=== PATIENT | female | born 1970 | race Caucasian/White ===

== ENCOUNTER 2017-09-04 08:39 | Day surgery (SDC) | payer OTHER, SELFPAY ==
[2017-09-04] VITALS (10 sets, daily range): BP systolic 108–148; BP diastolic 60–83; PULSE 53–82; RESP 16–18; TEMP 36.7–37.1; O2SAT 93–99; BMI 39.2
--- NOTE | 2017-09-04 08:46 | EKG12_ITS ---
Test Reason : PRE OP Blood Pressure : / mmHG Vent. Rate : 057 BPM Atrial Rate : 057 BPM P-R Int : 128 ms QRS Dur : 086 ms QT Int : 414 ms P-R-T Axes : 013 026 031 degrees QTc Int : 402 ms Sinus bradycardia Low voltage QRS (limb leads) Confirmed by PJ MONTOYA, JOSE C ([id number]), movie editor ALO RIOJAS ([id number]) on 09/09/2017 2:53:09 PM Referred By: Derek Molina Confirmed By:JOSE C OLIVA MD
[2017-09-04 09:20] LABS: Hematocrit 41.5 % (37-47); Hemoglobin 13.8 g/dl (12.0-15.0); Mean Corp Hgb Conc 33.3 g/gl (32-36); Mean Corpuscular Hgb 31.3 pg (27.0-32.0); Mean Corpuscular Volume 94.1 fL (81-99); Mean Platelet Vol. 10.1 fl (6.2-12.0); Platelet Count 374 K/mm3 (150-450); RBC Distribution Width CV 12.6 % (11.6-14.6); RBC Distribution Width SD 43.3 fl (35.1-43.9); Red Blood Count 4.41 M/mm3 (4.2-5.4); White Blood Count 10.1 K/mm3 (4.4-11.0)
[2017-09-04 09:22] LABS: Scan Indicated on CBC? Y/N NO
[2017-09-04 09:38] LABS: Anion Gap 7 (5-15); BUN 14 mg/dL (7-18); BUN/Creat Ratio 18.1 RATIO (10-20); Calcium,Total 8.8 mg/dL (8.5-10.1); Chloride 110 mmol/L (98-107); Creatinine, Serum 0.77 mg/dL (0.55-1.02); EST Glomerular Filtration Rate 86 mL/min (>60); Est Glom Filt Rate - Afr Amer 104 mL/min (>60); Estimated Creatinine Clearance 77.13 ml/min; Glucose 116 mg/dL (70-110); Potassium 4.1 mmol/L (3.5-5.1); Sodium Level 142 mmol/L (136-145)
[2017-09-04 09:48] LABS: Pregnancy, Serum, hCG Quali. NEGATIVE Negative (0-9 Nonpreg)
--- NOTE | 2017-09-04 10:15 | GALL_PTH ---
PATIENT: GOKUL SERRANO LOC: [facility] [place][id number] AGE/SX: 46/F ROOM: RE09/04/[address]: Dr. Derek Molina MD : 1970 BED: DIS: 09/04/2017 SPEC #: [id number] RECD: 09/04/17 13:09 STATUS: GAIL CJ #: [id number] CHRISS: 09/04/17 10:[address]: Derek Molina DEPT: SURGICAL PATHOLOGY RECD BY: Mikey Rodriguez ENTERED: 09/04/17 14:33 SP TYPE: NATALIE ENCARNACION DR: Dr. Hansa Lynch DO Tissues: Gallbladder, NOS Procedures: Surgery Specimen Level III HEADER OPERATION: Laparoscopic cholecystectomy with IOC PRE-OP DIAGNOSIS: Acute biliary pancreatitis, unspecified, complicated status; calculus of gallbladder without cholecystitis without obstruction TISSUE SUBMITTED: Gallbladder MICROSCOPIC DIAGNOSIS Gallbladder: Chronic cholecystitis. No stones are identified in the container or in the gallbladder. SJ:sarah 09/07/17 MICROSCOPIC DESCRIPTION Slides are reviewed. GROSS DESCRIPTION Received is one container labeled with the patient's name and designated gallbladder. The specimen consists of a gallbladder measuring 6.5 x 3 x 2.8 cm. The external surface is smooth and glistening. Focally, it is granular, hemorrhagic and contains cautery artifact. No stones are identified in the container or in the gallbladder. The mucosa is bile-stained and without any mass lesions. The gallbladder wall averages 0.2 cm in thickness and is free of mass lesions. Button Cutting Machine Operator sections of the gallbladder and the cystic duct are submitted in one cassette. / AM:sarah 09/04/17 TC: CPT: 50779
--- NOTE | 2017-09-04 10:47 | PCM.DC.GS ---
Discharge Diet: Light diet - advance as tolerated - if you have questions about your diet instructions, please talk to you doctor. Discharge Activity: May Not Drive - for 1 week or while taking narcotic pain medicine. May shower in (days): 1 Lifting Restrictions: 10 pounds Call your doctor if your incision/area has: Continuous Slow Oozing, Sudden Increased Bleeding, Increased Pain/ Swelling, Increased Redness, Foul Smelling Discharge Call your doctor if you observe: Fever of 101 or Higher Suture Line Care: Avoid Pulling/Pushing, Avoid Pinching/Bending Additional Dressing/Incision Instructions:: Change or remove dressing in 4 days. Leave steri-strips in place for 1 week. Allergies/Adverse Reactions: Allergies No Known Allergies Allergy (Verified 09/03/17 13:52) Medications to take at Discharge Hydrocodone Bitart/Apap 5-325 [Lyndora 5/325] 1 - 2 tab PO Q4H PRN PRN #20 tab 08/13/17 Hydrocodone Bitart/Apap 5-325 [Lyndora 5MG-325MG] 1 tablet PO Q6H PRN PRN 3 Days #6 tablet 09/04/17 The following prescriptions were given: Hydrocodone Bitart/Apap 5-325 [Lyndora 5MG-325MG] 1 tablet PO Q6H PRN PRN 3 Days #6 tablet PRN Reason: Pain Primary Care Physician: Hansa Lynch DO [Primary Care Provider] - Please Follow Up With: Derek Molina MD - [phone] When: Call to make an appointment to be seen in about 10 days.
[2017-09-04] MEDS: Cefazolin 2 GM in 0.9% Normal Saline 100 ML IV (10:56)
--- NOTE | 2017-09-04 11:15 | RAD_ITS ---
STUDY: INTRAOPERATIVE CHOLANGIOGRAM. REASON FOR EXAM: Female, 46 years old. Laparoscopic cholecystectomy. FLUOROSCOPY TIME (if supplied): (24.5 seconds) minutes/seconds TECHNIQUE: An intraoperative glandular was performed by the surgeon. Image was submitted. COMPARISON: None. FINDINGS: The visualized intrahepatic biliary ducts are unremarkable. The common bile duct is unremarkable. No intraluminal filling defects is seen. There is free flow of contrast into the duodenum. RAD/Cholangiogram/ O R,Initial IMPRESSION: Unremarkable intraoperative cholangiogram. Electronically Signed: Carlos A Yip MD at 14:02 EST Tel [phone], Service support ,
[2017-09-04] MEDS: Bupivacaine Mpf 0.5% 30 ML VIAL (11:20)
--- NOTE | 2017-09-04 12:28 | OP.PCM_ITS ---
Problem List (1) Chronic calculous cholecystitis Status: Acute Report of Operation Date of Procedure: 09/04/17 Pre-Operative Diagnosis: Chronic cholecystitis cholelithiasis, repetitive bouts of pancreatitis Post-Operative Diagnosis: Same Surgery/Procedure Performed:: Laparoscopic cholecystectomy with intraoperative cholangiography Description of Surgical Findings:: Timeout and informed consent was obtained. 46-year-old female was taken the operative placement table underwent general ventricular-based anesthesia. Ancef 2 g given intravenous relatively the abdomen was sterilely prepped draped 0.5% Marcaine was used as local anesthetic. Skin sites were pre-anesthetized. A total of 30 cc was used. A vertical infraumbilical incision was created. Holding sutures of 0 Vicryl placed. Varies needle inserted. Saline drop test performed. The abdomen was insufflated with CO2 to a pressure of 10 mmHg pressure. Yohana trocar inserted. 10 lap scope inserted. No evidence of any trocar injuries. The abdomen is rapidly inspected no evidence any superficial abnormalities. There were dense adhesions of omentum completely walling off the gallbladder. Five-minute trochars are placed in the epigastric mid abdomen and right upper quadrant. Tediously the omentum was bluntly sharply and electrocautery dissected free from the gallbladder. Then the infundibular area was tediously teased free. There was noted to be both an anterior to posterior cystic artery. The cystic duct was carefully completely dissected free. The hepatocystic angle was dissected free. 2 Hem-o-mingo clips were placed on the anterior cystic artery and one distally prior to transecting it. A Hem-o-mingo clip was placed on the cystic duct. Incision made into a 14-gauge Angiocath Greenlandic Berto catheter was inserted. Fluoroscopically controlled plantar grams were obtained demonstrating normal ductal anatomy and what appeared to be free flow into the small bowel. The cholangiogram catheter was removed and 2 Hem-o- mingo clips were placed on the cystic duct stump prior to transecting it. The posterior cystic artery was secured with 2 Hem-o-mingo clips. The gallbladder was then carefully and tediously dissected free from the liver bed. Significant amount of chronic inflammatory change was encountered and electrocautery was used to carefully dissect the gallbladder free. There was no bile or gallbladder stone spillage. The gallbladder was placed in retrieval bag. The right upper quadrant was irrigated and aspirated free of excess fluid. To further assure hemostasis fibular was placed in the liver bed. The gallbladder was exited the umbilicus. The remaining trochars were removed under visualization. The abdomen was allowed to deflate of CO2. The fascia at the umbilicus approximated interrupted 0 Vicryl figure 8 suture. Bandages were approximated up to 4 Monocryl subdermal stitches. Steri-Strips, Telfa, OpSite dressings applied. Sponge and instrument and needle counts were reported to the surgeon be correct. Blood loss was minimal. She tired procedure was taken to recovery or insect condition without apparent complication. Specimens gallbladder. Drains none. Blood loss minimal. Derek Molina M.D., F.A.C.S. Type of Anesthesia:: General Anesthesiologist: Amandeep Juarez
[2017-09-04] MEDS: HYDROcodone Bitartrate/Apap 5/325 Tablet PO (14:56)
== END 2017-09-04 15:57 | disposition home or self-care (01) ==
LOC: SDC 08:40 → AC 08:41
PROVIDERS: Family Provider Internal Medicine; PCP Internal Medicine; Visit Provider Surgery
PROC: (CPT 47610; principal; 2017-09-04 09:55)
DX: K81.1 Chronic cholecystitis (principal); K85.10 Biliary acute pancreatitis without necrosis or infection; F17.200 Nicotine dependence, unspecified, uncomplicated
CPT/HCPCS: 47563; 36415; 74300; 76000; 80048; 84703; 85027; 88304; 93005; J7120; J2405

== ENCOUNTER → 2018-02-17 15:49 | Outpatient (CLI) | payer BC, SELFPAY ==
[2018-02-17 17:18] LABS: Absolute Lymphocyte Count 2.94 X10^3/ul (0.83-4.51); Absolute Neutrophil Count 9.1 X10^3/uL (2.0-7.7); Basophil# 0.04 X10^3/uL; Basophil% 0.3 % (0-1); Eosinophil# 0.05 X10^3/uL; Eosinophils% 0.4 % (0-5); Hematocrit 40.5 % (37-47); Hemoglobin 13.8 g/dl (12.0-15.0); Lymphocyte # 2.94 X10^3/ul (4.0); Lymphocyte % 21.8 % (19-41); Mean Corp Hgb Conc 34.1 g/gl (32-36); Mean Corpuscular Hgb 32.2 pg (27.0-32.0); Mean Corpuscular Volume 94.4 fL (81-99); Mean Platelet Vol. 9.7 fl (6.2-12.0); Monocyte# 1.25 X10^3/uL; Monocyte% 9.3 % (0-10); Neutrophil # 9.14 X10^3/uL (2.7-7.7); Neutrophil % 67.8 % (47-70); Platelet Count 377 K/mm3 (150-450); RBC Distribution Width CV 12.9 % (11.6-14.6); RBC Distribution Width SD 43.5 fl (35.1-43.9); Red Blood Count 4.29 M/mm3 (4.2-5.4); White Blood Count 13.5 K/mm3 (4.4-11.0)
[2018-02-17 17:24] LABS: POSITIVE COUNT NO; POSITIVE DIFFERENTIAL NO; POSITIVE MORPHOLOGY NO
[2018-02-17 18:12] LABS: Erythrocyte Sedimentation Rate 24 mm/hr (0-20)
[2018-02-17 18:42] LABS: ALB/GLOB Ratio 0.8 RATIO (0.9-2.4); AST(SGOT) 21 U/L (15-37); Alanine Aminotransfer ALT/SGPT 40 U/L (13-56); Albumin, Serum 3.3 g/dL (3.2-5.0); Alkaline Phosphatase 79 U/L (45-117); Amylase 18 U/L (25-115); Anion Gap 9 (5-15); BUN 8 mg/dL (7-18); BUN/Creat Ratio 10.1 RATIO (10-20); Calcium,Total 8.6 mg/dL (8.5-10.1); Chloride 104 mmol/L (98-107); EST Glomerular Filtration Rate 83 mL/min (>60); Est Glom Filt Rate - Afr Amer 100 mL/min (>60); Globulin 4.4 g/dL (2.2-4.2); Glucose 114 mg/dL (74-106); Lipase 88 U/L (73-393); Potassium 3.3 mmol/L (3.5-5.1); Protein, Total 7.7 g/dL (6.4-8.2); Sodium Level 139 mmol/L (136-145)
== END ==
PROVIDERS: Family Provider Internal Medicine; PCP Internal Medicine; Visit Provider Internal Medicine
DX: R10.13 Epigastric pain (principal)
CPT/HCPCS: 80053; 82150; 83690; 85025; 85652

== ENCOUNTER → 2018-03-17 16:47 | Outpatient (CLI) | payer BC, SELFPAY | PROVIDERS: Family Provider Internal Medicine; PCP Internal Medicine; Visit Provider Internal Medicine | DX: R11.2 Nausea with vomiting, unspecified (principal) | CPT/HCPCS: 76705 ==

== ENCOUNTER → 2018-03-18 09:58 | Outpatient (CLI) | payer BC, SELFPAY | PROVIDERS: Family Provider Internal Medicine; PCP Internal Medicine; Visit Provider Internal Medicine | DX: R93.8 Abnormal findings on diagnostic imaging of other specified body structures (principal) | CPT/HCPCS: 74160; Q9967 ==

== ENCOUNTER → 2018-03-24 16:51 | Outpatient (CLI) | payer BC, SELFPAY ==
[2018-03-26 20:08] LABS: Endomysial Antibody IgA Negative (Negative)
[2018-03-27 08:55] LABS: Immunoglobulin A 298 mg/dL (87-352); t-Transglutaminase IgA <2 U/mL (0-3)
== END ==
PROVIDERS: Family Provider Internal Medicine; PCP Internal Medicine; Visit Provider Internal Medicine Gastroenterology
DX: R19.7 Diarrhea, unspecified (principal)
CPT/HCPCS: 36415; 82784; 83516; 86140; 86255

== ENCOUNTER → 2018-03-29 15:48 | Outpatient (CLI) | payer BC, SELFPAY ==
--- NOTE | 2018-03-29 12:52 | COLBX_PTH ---
PATIENT: GOKUL SERRANO LOC: [facility] U#:[id number] AGE/SX: 54/F ROOM: RE03/29/[address]: Dr. Zhou Carmona MD : 1970 BED: DIS: SPEC #: [id number] RECD: 03/29/18 15:20 STATUS: GAIL CJ #: [id number] CHRISS: 03/29/18 12:[address]: Zhou Carmona DEPT: SURGICAL PATHOLOGY RECD BY: Darin Gomes ENTERED: 03/30/18 12:09 SP TYPE: COLON BX OT DR: Dr. Hansa Lynch, [facility] Tissues: A - Ileum, NOS B - COLON BIOPSY Procedures: Surgery Specimen Level IV HEADER OPERATION: Colonoscopy with biopsies PRE-OP DIAGNOSIS: Abdomen pain, nausea, vomiting, weight loss TISSUE SUBMITTED: A ? Terminal ileum biopsies, rule out Crohn?s, B ? Right and left colon biopsies, rule out microscopic colitis MICROSCOPIC DIAGNOSIS A. Terminal ileum, biopsy: No pathologic diagnosis. B. Right and left colon, biopsy: No significant pathologic change. No evidence of colitis. AM:sarah 03/31/18 COMMENT A. There is no evidence of Crohn?s enteritis. MICROSCOPIC DESCRIPTION Slides are reviewed. GROSS DESCRIPTION A - Received in fixative is one container labeled with the patient's name and designated terminal ileum. The specimen consists of multiple irregular fragments of light yo soft tissue that in aggregate measure 0.5 x 0.3 x 0.1 cm. The specimen is totally submitted in one cassette. B - Received in fixative is one container labeled with the patient's name and designated right and left colon biopsy. The specimen consists of multiple irregular fragments of light yo soft tissue that in aggregate measure 1 x 0.5 x 0.1 cm. The specimen is totally submitted in one cassette. / AM:sarah 03/30/18 TC:5 CPT: 91902 x2
== END ==
PROVIDERS: Family Provider Internal Medicine; PCP Internal Medicine; Visit Provider Internal Medicine Gastroenterology
DX: R10.9 Unspecified abdominal pain (principal); R11.2 Nausea with vomiting, unspecified; R63.4 Abnormal weight loss
CPT/HCPCS: 88305

== ENCOUNTER → 2021-07-11 06:30 | Outpatient (CLI) | payer BC, SELFPAY ==
--- NOTE | 2021-07-11 06:42 | MRI_ITS ---
STUDY: MRI BRAIN WITHOUT CONTRAST REASON FOR EXAM: Female, 50 years old. ABNORMAL GAIT, episodes of headaches w/ nausea, vision change TECHNIQUE: Standardized multiplanar fat and water weighted pulse sequences were obtained. COMPARISON: None. FINDINGS: Normal size of the ventricles and extra-axial spaces for the patient''s age. Normal white matter tracts of the supratentorial brain. Normal bilateral basal ganglia. Normal thalami. There is no extra-axial fluid accumulation. Normal sella turcica, pituitary gland, infundibular stalk, optic chiasm and hypothalamus. Normal tectal plate and pineal gland. Normal midbrain, viki and medulla. Normal cerebellum. Normal basal cisterns. MRI/Brain without Contrast IMPRESSION: Unremarkable unenhanced MRI of the brain. Electronically Signed: Renay Castro MD at 13:32 EST Tel , Service support ,
== END ==
PROVIDERS: PCP Internal Medicine; Referring Provider Internal Medicine; Visit Provider Internal Medicine
DX: R26.9 Unspecified abnormalities of gait and mobility (principal)
CPT/HCPCS: 70551

== ENCOUNTER 2021-08-13 14:59 | Outpatient (CLI) | payer BC, SELFPAY ==
--- NOTE | 2021-08-13 15:01 | BI_ITS ---
MAMMOGRAPHY - BILATERAL SCREENING REASON FOR EXAM: Female, 50 years old. Routine annual screening examination. PERTINENT HISTORY: Sister with breast cancer. Mother with breast cancer. Aunt with breast cancer. Grandmother with breast cancer. Prior bilateral breast reduction surgery. TECHNIQUE: Digital bilateral breast taylor (3D mammographic acquisition) in the CC and MLO projections. 2-D mediolateral oblique (MLO) and craniocaudad (CC) views of both breasts were obtained. CAD: Full Field Digital Mammography with Computer Added Detection was performed. COMPARISON: Comparison is made with prior study dated 05/13/2017 and 04/23/2016. FINDINGS: Breast Composition: The breasts are heterogeneously dense, which may obscure small masses. There are no dominant masses or suspicious calcifications. No other significant abnormalities are identified. There has been no significant change since the prior study. BI/SCRN MAMM (CAD)W/TAYLOR BILAT IMPRESSION: Stable bilateral screening mammogram. Yearly follow-up mammogram recommended. (A) ASSESSMENT CATEGORY: BIRADS Category 1: Negative. A letter regarding these results will be sent to the patient by the facility within 30 days. Approximately 10% of breast cancers are not detected by mammography. A normal mammogram should not delay biopsy of a clinically suspicious abnormality. [id number] Electronically Signed: Carlos A Yip MD at 15:40 EST , Service support ,
== END 2021-08-13 23:59 | disposition short-term general hospital (02) ==
LOC: OPBI 14:59
PROVIDERS: PCP Internal Medicine; Referring Provider Internal Medicine; Visit Provider Internal Medicine
DX: Z12.31 Encounter for screening mammogram for malignant neoplasm of breast (principal); Z80.3 Family history of malignant neoplasm of breast
CPT/HCPCS: 77063; 77067

== ENCOUNTER → 2023-07-06 | Outpatient (CLI) | payer BC, SELFPAY ==
--- NOTE | 2023-07-06 08:25 | BI_ITS ---
MAMMOGRAPHY - BILATERAL SCREENING REASON FOR EXAM: Female, 52 years old. Routine annual screening examination. PERTINENT HISTORY: Sister with breast cancer. Mother with breast cancer. Grandmother with breast cancer. Aunt with breast cancer. History of prior bilateral breast reduction surgery. TECHNIQUE: Digital bilateral breast taylor (3D mammographic acquisition) in the CC and MLO projections. 2-D mediolateral oblique (MLO) and craniocaudad (CC) views of both breasts were obtained. CAD: Full Field Digital Mammography with Computer Added Detection was performed. COMPARISON: Comparison is made with prior study dated August 13, 2021 and May 13, 2017. FINDINGS: Breast Composition: The breasts are heterogeneously dense, which may obscure small masses. There are no dominant masses or suspicious calcifications. Stable small benign-appearing bilateral axillary lymph nodes. No other significant abnormalities are identified. There has been no significant change since the prior study. BI/SCRN MAMM (CAD)W/TAYLOR BILAT IMPRESSION: Stable bilateral screening mammogram. Yearly follow-up mammogram recommended. (A) ASSESSMENT CATEGORY: BIRADS Category 2: Benign. A letter regarding these results will be sent to the patient by the facility within 30 days. Approximately 10% of breast cancers are not detected by mammography. A normal mammogram should not delay biopsy of a clinically suspicious abnormality. [id number] Electronically Signed: Carlos A Yip MD at 9:31 EST ,
== END | disposition home or self-care (01) ==
LOC: OPBI 08:25
PROVIDERS: PCP Internal Medicine; Referring Provider Internal Medicine; Visit Provider Internal Medicine
DX: Z12.31 Encounter for screening mammogram for malignant neoplasm of breast (principal); Z80.3 Family history of malignant neoplasm of breast
CPT/HCPCS: 77063; 77067

== ENCOUNTER → 2024-09-14 | Outpatient (CLI) | payer BC, SELFPAY ==
[2024-09-14 11:00] LABS: Anion Gap 7 (5-15); BUN 12 mg/dL (7-18); BUN/Creat Ratio 14.3 RATIO (10-20); Calcium,Total 9.5 mg/dL (8.5-10.1); Chloride 108 mmol/L (98-107); Cholesterol 233 mg/dL (200); Creatinine, Serum 0.84 mg/dL (0.55-1.02); EST Glomerular Filtration Rate 76 mL/min (>60); Est Glom Filt Rate - Afr Amer 92 mL/min (>60); Glucose 112 mg/dL (74-106); High Density Lipoprotein 55 mg/dL; Potassium 4.1 mmol/L (3.5-5.1); Sodium Level 138 mmol/L (136-145); Triglycerides 152 mg/dL; Very Low Density Lipoprotein 30 mg/dL (5-40)
== END | disposition home or self-care (01) ==
LOC: MFPLAB 08:08
PROVIDERS: PCP Internal Medicine; Referring Provider Family Medicine; Visit Provider Family Medicine
DX: Z00.00 Encounter for general adult medical examination without abnormal findings (principal)
CPT/HCPCS: 36415; 80048; 80061; 84443

== ENCOUNTER → 2024-10-24 | Outpatient (CLI) | payer BC, SELFPAY ==
--- NOTE | 2024-10-24 15:17 | BI_ITS ---
EXAM: PROCEDURE: MA Mammogram Digital Screen CLINICAL HISTORY: Screening COMPARISON: Mammogram studies dated 07/06/2023 and 08/13/2021 TECHNIQUE: A bilateral screening mammogram was obtained with MLO and CC views of both breasts with digital breast tomosynthesis. BREAST CANCER RISK ASSESSMENT: Does not appear to have been calculated. FINDINGS: There are lobulated nodular masslike densities seen in the retroareolar region, lateral and medial aspect of the right breast. The largest measures approximately 19 mm. These are obscured by the heterogeneously dense breast tissue. Further workup is indicated. Benign-appearing round microcalcifications and macrocalcifications are seen in the right breast. Benign-appearing round microcalcifications and macrocalcifications are seen in the left breast. Stable lobulated nodular masslike densities are seen. No suspicious masses, suspicious calcifications or other suspicious mammogram findings are seen in the left breast. CONCLUSION: Right Breast: BI-RADS category 0, incomplete, additional imaging needed. Left Breast: BI-RADS category 2, benign findings Breast Composition: The breasts are heterogeneously dense, which may obscure small masses. Recommendation: Diagnostic mammogram and ultrasound The patient should return for an LM view of the right breast as well as spot compression CC and spot compression MLO view of the right breast lobulated nodular masslike densities. An ultrasound will also most likely be needed. Thank you for referring your patient to the [facility], if you have any questions, please call us at the performing site listed at the top of the report. [facility] , [facility] , [facility] and [facility] . Reading Location: [id number]
== END | disposition home or self-care (01) ==
LOC: OPBI 15:16
PROVIDERS: PCP Family Medicine; Referring Provider Family Medicine; Visit Provider Family Medicine
DX: Z12.31 Encounter for screening mammogram for malignant neoplasm of breast (principal)
CPT/HCPCS: 77063; 77067

== ENCOUNTER → 2024-10-31 | Outpatient (CLI) | payer BC, SELFPAY ==
--- NOTE | 2024-10-31 08:56 | US_ITS ---
PROCEDURE: BREAST LIMITED UNILATERAL 10/31/2024 REASON FOR EXAM: RIGHT BREAST DENSITIES Inconclusive mammogram. Evaluate masslike densities.. TECHNIQUE: Targeted left breast ultrasound. COMPARISON: Mammogram studies dated 10/31/2024, 10/24/2024, and 07/06/2023 FINDINGS: There is a hypoechoic, heterogeneous, irregularly marginated, masslike density seen in the lateral areolar region covering an area measuring approximate 4.1 x 3.7 x 1.3 cm. This appears to have some calcifications within it. Biopsy is warranted in order to completely exclude a malignancy. There is a benign-appearing cyst identified at the 5 o'clock, 2 cm from nipple position measuring 4 x 4 x 4 mm. US/Breast Limited Unilateral IMPRESSION: Impression: The mass in the lateral areolar region should be biopsied is noted completely exclude a malignancy. Birads: BI-RADS 4: SUSPICIOUS ABNORMALITY. Reading Location: [id number]
--- NOTE | 2024-10-31 08:56 | BI_ITS ---
EXAM: Digital unilateral mammogram left breast with ronn. CLINICAL HISTORY: Inconclusive screening mammogram study dated 10/24/2024 showed lobulated nodular masslike densities in the right breast. Evaluate. COMPARISON: Mammogram dated 10/24/2024 and 07/06/2023 TECHNIQUE: ML view of the right breast was performed as well as spot compression CC and spot compression MLO views of the right breast lobulated nodular masslike densities. FINDINGS: There is a 4 cm, ill-defined, masslike density in the lateral, far anterior aspect of the right breast and areolar region which does persist on the ML view and does not disperse on the spot compression views. Further workup with ultrasound will be performed for further evaluation. There is a 5 mm, partially obscured, isodense mass in the lower inner quadrant. This is best appreciated on the spot compression views. Further workup with ultrasound will be performed. Benign macrocalcifications and round microcalcifications are seen in the breasts. BI/DIAG MAMM W/CAD, UNILAT IMPRESSION: BI-RADS category A/0. Incomplete. The mass and masslike density in the right breast will be further worked up with ultrasound. Please see that report. Reading Location: [id number]
== END | disposition home or self-care (01) ==
PROVIDERS: PCP Family Medicine; Referring Provider Family Medicine; Visit Provider Family Medicine
DX: R92.30 Dense breasts, unspecified (principal)
CPT/HCPCS: 76642; 77065

== ENCOUNTER → 2024-11-28 | Outpatient (CLI) | payer BC, SELFPAY ==
--- NOTE | 2024-11-28 10:30 | BRBX_PTH ---
PATIENT: GOKUL SERRANO LOC: [facility] U#:[id number] AGE/SX: 53/F ROOM: RE11/28/[address]: Dr. Tracey Desai MD : 1970 BED: DIS: 11/28/2024 SPEC #: [id number] RECD: 11/28/24 13:37 STATUS: GAIL REQ #: [id number] CHRISS: 11/28/24 10:[address]: Tracey Desai DEPT: SURGICAL PATHOLOGY RECD BY: Jewel Webster ENTERED: 11/28/24 13:38 SP TYPE: BREAST BX OTHR DR: Dr. Ino Tobias MD Tissues: A - Right breast, NOS Procedures: Surgery Specimen Level IV HEADER OPERATION: Ultrasound guided needle core biopsy right breast PRE-OP DIAGNOSIS: Abnormal mammogram TISSUE SUBMITTED: A- Right breast mass tissue - lateral retroareolar Ischemic Time: 1 minute Fixation Time: 8.5 hours MICROSCOPIC DIAGNOSIS A. Right breast, lateral retroareolar, mass, biopsy: * Benign breast tissue with fibrosis and focal UDH (usual ductal hyperplasia). * Microcalcifications are not observed (deeper sections examined). MICROSCOPIC DESCRIPTION Slides are reviewed. GROSS DESCRIPTION A. Received in formalin in a container labeled with the patient's name, date of , and right breast tissue are multiple white-pink fragments of soft tissue measuring 1.2 x 0.8 x 0.2 cm in aggregate. Submitted in toto in A1. Total formalin fixation time: Between 6 and 72 hours. [facility] 11/29/2024 CPT:68068
== END | disposition home or self-care (01) ==
LOC: LABSPEC 11:43
PROVIDERS: PCP Family Medicine; Referring Provider Surgery; Visit Provider Surgery
DX: R92.8 Other abnormal and inconclusive findings on diagnostic imaging of breast (principal)
CPT/HCPCS: 88305

== ENCOUNTER → 2025-06-19 | Outpatient (CLI) | payer BC, SELFPAY ==
--- NOTE | 2025-06-19 13:26 | US_ITS ---
PROCEDURE: BREAST LIMITED UNILATERAL 06/19/2025 REASON FOR EXAM: F, Age 54 y/o , 6 MONTH F/U left breast mass. Short-term follow-up exam. Evaluate. Document stability. COMPARISON: Breast ultrasound dated 10/31/2024 and mammogram studies dated 10/31/2024, 10/24/2024, and 07/06/2023 TECHNIQUE: Procedure Code: USBRSTLIMIT Modality: US Procedure: BREAST LIMITED UNILATERAL FINDINGS: There is a stable, benign-appearing cyst in the right breast retroareolar region of the 5 o'clock, 2 cm from nipple position measuring 5 x 4 x 2 mm. There is a stable area of heterogeneous breast parenchymal tissue in the lateral areolar region of the breast. This area is ill-defined. It appears to represent residual fibroglandular tissue and/or fibrocystic tissue on today's ultrasound exam. US/Breast Limited Unilateral IMPRESSION: There is a stable, benign-appearing cyst in the right breast retroareolar regio n of the 5 o'clock, 2 cm from nipple position measuring 5 x 4 x 2 mm. There is a stable area of heterogeneous breast parenchymal tissue in the latera l areolar region of the breast. This area is ill-defined. It appears to represent residual fibroglandular tissue and/or fib rocystic tissue on today's ultrasound exam. The patient should return in October 2025 for routine yearly screening mammograph y. BI-RADS 2: BENIGN RECOMMENDATION: Routine annual follow-up in 1 Year Reading Location: [id number]
== END | disposition home or self-care (01) ==
LOC: OPUS 13:25
PROVIDERS: PCP Family Medicine; Referring Provider Surgery; Visit Provider Surgery
DX: N63.10 Unspecified lump in the right breast, unspecified quadrant (principal)
CPT/HCPCS: 76642

== ENCOUNTER → 2025-07-07 | Outpatient (CLI) | payer BC, SELFPAY ==
--- OUTSIDE RECORDS SUMMARY | 2025-07-07 11:54 | XMS RPT_ITS | CCD ---
Author Organization [facility] Care Team Providers Care Kitchen Assistant Name Role Phone Hansa Lynch DO Unavailable Jesse MONTOYA, Derek Montana Unavailable Dr. Zhou Carmona Unavailable Leia MATTA, Kaylee Unavailable Unavailable Tiffanie RN, Jessica Unavailable Unavailable Unavailable Unavailable Dr. Hansa Lynch DO Primary Care Provider 1( [phone] Jatinder MONTOYA, Dr. Mckinnon Attending Provider Dr. Ino Tobias MD Referring Provider Jatinder MONTOYA, Dr. Mckinnon Primary Care Provider Ino Tobias Attending Unavailable Tobias, Ino Referring Unavailable Tobias, Ino Primary Care Unavailable Ino Tobias Attending Unavailable Ino Tobias Referring Unavailable Ino Tobias Primary Care Unavailable Robotyaw, Tracey Attending Unavailable Robotyaw, Tracey Referring Unavailable Ino Tobias Primary Care Unavailable Robotyaw, Tracey Attending Unavailable Robotham, Tracey Referring Unavailable TobiasIno mcclure Primary Care Unavailable Robotham, Tracey Attending Unavailable TobiasIno mcclure Referring Unavailable Ino Tobias Primary Care Unavailable Robotham, Tracey Attending Unavailable Tobias, Ino Referring Unavailable Jatinder, Ino Primary Care Unavailable Ino Tobias Attending Unavailable Ino Tobias Referring Unavailable Hansa Lynch Primary Care Unavailable Medications Completed/Discontinued Medications Medication Drug Class(es) Dates Sig (Normalized) Sig (Original) acetaminophen 325 mg / HYDROcodone bitartrate 5 mg oral tablet (5 sources) Opioid Agonist Start: 08-21-2017 End: 05-15-2021 Hydrocodone-Acetami nophen 1 TABLET tablet Discontinued 1 {tbl} PO EVERY 6 HOURS NEEDED as needed for Pain 6 3 September 04, 2017 1:00am September 15, 2017 2:18pm Start: 08-13-2017 End: 09-15-2017 Hydrocodone-Acetaminophen 1 TABLET tablet Discontinued 1 - 2 {tbl} PO EVERY 4 HOURS NEEDED as needed for Pain August 13, 2017 1:00am September 15, 2017 2:18pm Comment on above: This order discontin ued per [facility]. amoxicillin 875 mg / clavulanate 125 mg oral tablet (1 source) Penicillin-class Antibacterial Start: 2016 End: 2017 take 1 tablet by mouth twice daily Augmentin 875-125 MG Oral Tablet 1 (one) Tablet bid for 0 days Quantity: 20 {Tablet} Refills: 0 Ordered: 21-Aug-2017 Jessica Moreno RN Start : 01-May-2017 End : 21-Aug-2017 Inactive cephalexin 500 mg oral capsule (1 source) Cephalosporin Antibacterial Start: 2015 End: 2015 take 1 capsule by mouth four times daily Keflex 500 MG Oral Capsule 1 (one) Capsule qid for 10 days Refills: 0 Ordered: 10-Apr-2016 Rodrigo Thompson Start : 17-Mar-2016 End : 10-Apr-2016 Inactive ciprofloxacin 500 mg oral tablet (1 source) Quinolone Antimicrobial Start: 2017 End: 2020 take 1 tablet by mouth twice daily Ciprofloxacin HCl 500 MG Oral Tablet 1 (one) Tablet bid for 0 days Quantity: 20 {Tablet} Refills: 0 Ordered: 15-May-2021 Aria Duque CMA Start : 17-Feb-2018 End : 15-May-2021 Inactive citalopram 20 mg oral tablet (1 source) Serotonin Reuptake Inhibitor Start: 2016 End: 2016 take 1 tablet by mouth once daily at bedtime CeleXA 20 MG Oral Tablet 1 (one) Tablet qhs for 0 days Quantity: 30 {Tablet} Refills: 5 Ordered: 01-May-2017 Hansa Lynch DO, DO, Kathleen Start : 01-May-2017 End : 01-May-2017 Discontinued metaxalone 800 mg oral tablet (1 source) Start: 2015 End: 2016 take 1 tablet by mouth three times daily as needed Skelaxin 800 MG Oral Tablet 1 (one) Tablet tid prn for 0 days Quantity: 20 {Tablet} Refills: 0 Ordered: 07-Aug-2016 Jessica Moreno RN Start : 05-Jun-2016 End : 07-Aug-2016 Inactive methylPREDNISolone 4 mg oral tablet (1 source) Corticosteroid Start: 2015 End: 2016 Medrol 4 MG Oral Tablet Therapy Pack 1 (one) Tab Ther Pack uad for 0 days Quantity: 1 {Dose_Pack} Refills: 0 Ordered: 07-Aug-2016 Jessica Moreno RN Start : 05-Jun-2016 End : 07-Aug-2016 Inactive ondansetron 8 mg disintegrating oral tablet (2 sources) Serotonin-3 Receptor Antagonist Start: 2017 End: 2020 Ondansetron 8 MG Oral Tablet Disintegrating 1 (one) Tablet qac for 0 days Quantity: 90 {Tablet} Refills: 0 Ordered: 15-May-2021 Aria Duque CMA Start : 17-Mar-2018 End : 15-May-2021 Inactive Start: 08-21-2017 End: 05-15-2021 take 1 tablet by mouth every eight hours as needed Zofran 8 MG Oral Tablet 1 (one) Tablet q8h prn for 0 days Quantity: 10 {Tablet} Refills: 0 Ordered: 21-Aug-2017 Aria Duque CMA Start : 21-Aug-2017 End : 15-May-2021 Discontinued Comments: This order discontinued per [facility]. Comment on above: This order discontin ued per [facility]. sulfamethoxazole 800 mg / trimethoprim 160 mg oral tablet (1 source) Dihydrofolate Reductase Inhibitor Antibacterial, Sulfonamide Antimicrobial Start: 03-17-20 16 End: 04-10-20 16 take 1 tablet by mouth twice daily Bactrim DS 800-160 MG Oral Tablet 1 (one) Tablet bid for 10 days Refills: 0 Ordered: 10-Apr-2016 Rodrigo Thompson Start : 17-Mar-2016 End : 10-Apr-2016 Inactive tiZANidine 4 mg oral tablet (1 source) Central alpha-2 Adrenergic Agonist Start: 02-18-20 18 End: 02-18-20 18 take 1 tablet by mouth twice daily as needed TiZANidine HCl 4 MG Oral Tablet 1 (one) Tablet bid prn for 0 days Quantity: 20 {Tablet} Refills: 0 Ordered: 17-Feb-2018 Jessica Moreno RN Start : 17-Feb-2018 End : 17-Feb-2018 Inactive NEGATED: Highlighted row has not occurred!No Known Historical Medications (1 source) No Known Historical Medications Problems Active Problems Problem Classification Problem Date Documented Date Episodic/Chronic Abdominal pain (5 sources) Epigastric pain; Translations: [Epigastric pain] 07-17-2021 Episodic Comment on above: h/o pancreatitis fro m gallstone and gb removedstill having n/v after eating -- lft normal and post us no cbd diliation-- etiology unknown Anxiety disorders (8 sources) Acute stress disorder; Translations: [Stress reaction] Resolved: 05-01-2017 07-17-2021 Chronic Biliary tract disease (5 sources) Gallstone; Translations: [Gallstones] Resolved: 03-17-2018 03-17-2018 Episodic Comment on above: s/p gb removed Diseases of white blood cells (1 source) Leukocytosis; Translations: [Leukocytosis, unspecified type] 07-17-2021 Chronic Genitourinary symptoms and ill-defined conditions (2 sources) Dysuria; Translations: [Dysuria] 07-17-2021 Episodic Comment on above: no flank pain Headache; including migraine (3 sources) Migraine; Translations: [Migraine] 07-17-2021 Chronic Headache; including migraine (3 sources) Headache; Translations: [Headache] 07-17-2021 Episodic Comment on above: new and different fr om her usual migraines Immunizations and screening for infectious disease (4 sources) Needs influenza immunization; Translations: [Need for prophylactic vaccination and inoculation against influenza (Renamed from Need for immunization against influenza)] 07-17-2021 Episodic Nausea and vomiting (5 sources) Nausea; Translations: [Nausea] 07-17-2021 Episodic Nonmalignant breast conditions (1 source) Unspecified lump in the right breast, unspecified quadrant; Translations: [Unspecified lump in the right breast, unspecified quadrant] Onset: 06-05-2025 Episodic Other and ill-defined heart disease (3 sources) Diastolic dysfunction; Translations: [Diastolic dysfunction] 07-17-2021 Chronic Other connective tissue disease (1 source) Spasm; Translations: [Muscle spasm] 07-17-2021 Episodic Comment on above: reactive muscle spam s from internal issues or referred pain from pancreeatitis/uti? Other hematologic conditions (1 source) ESR raised; Translations: [Elevated sed rate] 07-17-2021 Episodic Other lower respiratory disease (2 sources) Cough; Translations: [Cough] Resolved: 09-11-2016 08-21-2017 Episodic Other nervous system disorders (3 sources) Abnormal gait; Translations: [Abnormal gait] 07-17-2021 Episodic Other nutritional; endocrine; and metabolic disorders (2 sources) Body mass index 30+ - obesity; Translations: [BMI 37.0-37.9, adult] Resolved: 05-15-2021 07-17-2021 Chronic Other screening for suspected conditions (not mental disorders or infectious disease) (1 source) Ultrasound scan abnormal; Translations: [Abnormal ultrasound] 07-17-2021 Chronic Comment on above: STAT STAT STATus jung ws pancreatitisSTAT STAT STAT Other skin disorders (4 sources) Folliculitis; Translations: [Folliculitis] 07-17-2021 Episodic Pancreatic disorders (not diabetes) (3 sources) Acute pancreatitis; Translations: [Pancreatitis due to biliary obstruction] Resolved: 03-17-2018 03-17-2018 Episodic Comment on above: cat scan showed norm al gb-- no medications, only social drinker -- will do us to look at cbd size, and pancreas again for fu -- repeat labs Residual codes; unclassified (1 source) Family history of breast cancer; Translations: [Family history of breast cancer] 07-17-2021 Episodic Residual codes; unclassified (2 sources) Family history of diabetes mellitus; Translations: [Family history of diabetes mellitus] 07-17-2021 Episodic Residual codes; unclassified (1 source) Non-smoker; Translations: [Non-smoker] 07-17-2021 Episodic Screening and history of mental health and substance abuse codes (1 source) Ex-smoker; Translations: [Former smoker] 07-17-2021 Episodic Comment on above: quit 09/2020 Spondylosis; intervertebral disc disorders; other back problems (2 sources) Low back pain; Translations: [Low back pain] Resolved: 09-11-2016 08-21-2017 Episodic Substance-related disorders (7 sources) Smoker; Translations: [Smoker] 07-17-2021 Chronic Comment on above: one pack a week Syncope (3 sources) Syncope and collapse; Translations: [Syncope and collapse] 07-17-2021 Episodic Comment on above: consider HUT in futu re if testing normal and cardio consult with EPS studies etc Unclassified (15 sources) Unclassified (4 sources) BMI 37.0-37.9, adult Unclassified (2 sources) Encounter for screening mammogram for breast cancer (Renamed from Encounter for screening mammogram for malignant neoplasm of breast) Unclassified (1 source) Former smoker Unclassified (1 source) Dense breasts, unspecified; Translations: [Dense breasts, unspecified] Onset: 12-02-2024 Urinary tract infections (1 source) Bacterial urinary infection; Translations: [UTI (urinary tract infection), bacterial] 07-17-2021 Episodic Past or Other Problems Problem Classification Problem Date Documented Date Episodic/Chronic Adjustment disorders (1 source) Stress; Translations: [Situational stress] Resolved: 05-01-2017 08-21-2017 Chronic Other circulatory disease (1 source) Abnormal chest sounds; Translations: [Abnormal lung sounds] Resolved: 09-11-2016 08-21-2017 Episodic Other nutritional; endocrine; and metabolic disorders (1 source) Body mass index 40+ - severely obese; Translations: [BMI 40.0-44.9, adult] Resolved: 05-15-2021 05-15-2021 Chronic Other screening for suspected conditions (not mental disorders or infectious disease) (6 sources) Ultrasonography of breast abnormal; Translations: [Abnormal ultrasound of breast] Onset: 10-29-2024 07-17-2021 Episodic Pneumonia (except that caused by tuberculosis or sexually transmitted disease) (1 source) Atypical pneumonia; Translations: [Walking pneumonia] Resolved: 09-11-2016 08-21-2017 Episodic Pneumonia (except that caused by tuberculosis or sexually transmitted disease) (1 source) Pneumonia (except that caused by tuberculosis or sexually transmitted disease) Skin and subcutaneous tissue infections (1 source) Infection of skin; Translations: [Skin infection] Resolved: 09-11-2016 08-21-2017 Episodic Unclassified (1 source) Pregnancies (); Translations: [Pregnancies ()] 07-17-2021 Comment on above: 0. Unclassified (1 source) Abnormal ultrasound Unclassified (2 sources) Non-smoker Unclassified (3 sources) Nausea and vomiting in adult Unclassified (2 sources) Pancreatitis due to biliary obstruction Unclassified (1 source) Muscle spasm Unclassified (1 source) Elevated LFTs (Renamed from Elevated liver function tests) Unclassified (1 source) Elevated sed rate Unclassified (4 sources) BMI 40.0-44.9, adult Unclassified (1 source) Leukocytosis, unspecified type Unclassified (1 source) Stress reaction Unclassified (1 source) Abnormal ultrasound of breast Unclassified (4 sources) Situational stress Unclassified (1 source) Family history of breast cancer Unclassified (1 source) Abnormal lung sounds Unclassified (1 source) BMI 39.0-39.9,adult Unclassified (1 source) Breast screening Unclassified (1 source) Skin infection Unclassified (1 source) Annual Medicare Physical WITH abnormal findings (Renamed from Encounter for general adult medical examination with abnormal findings) Urinary tract infections (1 source) Urinary tract infections Results Test Name Value Interpretation Reference Range Facility Surgery Specimen Level [facility] 11-28-2024 Surgery Specimen Level IV ---- Patient Age/Sex Location Account Attending Physician ---- GOKUL SERRANO 53/F [facility] [id number] Dr. Tracey Desai MD ---- Specimen: [id number] Received: 11/28/24 Status: GAIL Azul Num: [id number] Spec Type: BREAST BX Subm Dr: Dr. Tracey Desai MD HEADER OPERATION: Ultrasound guided needle core biopsy right breast PRE-OP DIAGNOSIS: Abnormal mammogram TISSUE SUBMITTED: A- Right breast mass tissue - lateral retroareolar Ischemic Time: 1 minute Fixation Time: 8.5 hours ---- MICROSCOPIC DIAGNOSIS A. Right breast, lateral retroareolar, mass, biopsy: * Benign breast tissue with fibrosis and focal UDH (usual ductal hyperplasia). * Microcalcifications are not observed (deeper sections examined). MICROSCOPIC DESCRIPTION Slides are reviewed. GROSS DESCRIPTION A. Received in formalin in a container labeled with the patient's name, date of , and right breast tissue are multiple white-pink fragments of soft tissue measuring 1.2 x 0.8 x 0.2 cm in aggregate. Submitted in toto in A1. Total formalin fixation time: Between 6 and 72 hours. [facility] 11/29/2024 CPT:76185 ---- Patient Age/Sex Location Account Attending Physician ---- ZACHLOVERobina FAITH 53/F [facility] [id number] Dr. Tracey Desai MD ---- Signed (signature on file) Dr. Bhavana Valdes MD 11/29/24 1515 ---- Normal [facility] Comment on above: Performed By: #### P SUIV #### [facility] [address] [place], [address] Surgery Visit Reporton 11-28 Surgery Visit Report [facility] [address] [place] [address] OFFICE VISIT Date of Service: 11/28/24 MR#: [id number] Acct: [id number] Name: GOKUL SERRANO Rep #: [id number] : 1970 Provider: Dr. Tracey tidwell MD Age/Sex: 53/F Location: [facility] Status: Signed Intake Vital Signs 11/03/24 09:58 Height 5 ft 5 in Weight: 182 lb BMI 30.2 BP 152/69 H Blood Pressure Location Rt brachial Position Sitting Respiration 17 Pulse 58 L Pulse Source Monitor Pulse Oximetry (%) 98 Oxygen Delivery Method room air Intake Visit Reasons: BREAST BIOPSY Chief Complaint: Right Breast Biopsy 11/28 Kiln Burner Required: No Accompanied by: Is patient in pain?: No Allergies No Known Allergies Allergy (Verified 11/28/24 11:35) Medications ???Medication ???Instructions ???Recorded ???Confirmed ???Type phentermine 7.5 mg-topiramate ER 1 cap PO QDAY 11/03/24 11/28/24 Hi story 46 mg capsule,ext.release 24hr mphase (Qsymia) Have you fallen in the past year?: No PFSH Medical History Anxiety Pancreatitis Nausea vomiting Abdominal pain Surgical History S/P cholecystectomy Status post breast reduction S/P partial hysterectomy Family History Mother Breast cancer Diabetes Sister Breast cancer Diabetes Father Seizures Aunt Breast cancer Social History Smoking Status: Former smoker second hand exposure: No alcohol intake: current alcohol intake frequency: a few times a month substance use type: does not use caffeine: Yes what type of physical activity do you participate in: none frequency: does not exercise seatbelt use: always HPI HPI HPI: 53-year-old female presents for right breast biopsy. ROS General General: Yes weight change; No appetite, fatigue, colon cancer or breast cancer HEENT HEENT: No difficulty swallowing, eye injury, eye surgery, swollen glands or hoarseness Endo Endocrine: No thyroid disease, diabetes mellitus, thyroid cancer, Hair loss, heat intolerance or cold intolerance Skin Skin: No rash or changing moles Breast Breast: Yes abnormal mammogram and abnormal US; No left breast lump, right breast lump, nipple discharge, breast pain or breast enlargement Musc Musculoskeletal: No back problems, arthritis, rheumatoid arthritis, gout or joint pain Cardio Cardiovascular: No murmur, pacemaker, heart disease, atrial fibrillation, high blood pressure, heart attack, heart stent, palpitations, shortness of breath with exertion or chest pain Psych Psychiatric: No depression, anxiety or hearing voices Resp Respiratory: No shortness of breath, No sleep apnea, No cough, No COPD, No asthma, No emphysema and No wheezing Gastro Gastrointestinal: No abdominal pain, No nausea or vomiting, No diarrhea, No constipation, No blood in stool, No acid reflux, No hemorrhoids, No ulcers, No gallbladder problem and No black,tarry stools Aníbal Hematologic: No blood thinners, No blood disorders, No bleeding, No anemia and No blood clots Neuro Neurologic: No numbness and Yes tingling Office Procedures Biopsy Provider Documentation Reviewed the ultrasound and mammography with patient and discussed the need for biopsy. Reviewed the procedure of biopsy with a core biopsy device. A marker clip will be placed to identify the location. Patient has been counseled to the risks/benefits of the procedure. I have explained the risks of the surgery, including but not limited to: infection, bleeding, injury to any blood vessels/nerves, scar tissue, missing the lesion, further surgery, etc. - the patient understands and agrees to proceed. I have answered all of the patient's questions to her satisfaction and she has no further questions. Signed consent is completed. Procedure: ultrasound-guided core biopsy Description of procedure: Patient was brought into the ultrasound room in the right breast was marked. A timeout was completed verifying correct patient, procedure, site, specially, prior to beginning procedure. The right breast was prepped and draped in usual sterile fashion and using local anesthesia was obtained with 1% lidocaine with epi. The lesion was located with the ultrasound lateral areolar from nipple. Small incision was made with 11 blade to introduced the BARD MaxCore through the skin. Under ultrasound guidance multiple core samples were obtained using then 14-gauge BARD MaxCore and sent in formalin for pathology. The Bard dual ultra-clip was then deployed into the biopsy cavity under ultrasound guidance and a picture was taken. Upon completion procedur (more content not included)... Normal [facility] Surgery Visit Reporton 11-03 Surgery Visit Report [facility] [address] [place] [address] OFFICE VISIT Date of Service: 11/03/24 MR#: [id number] Acct: [id number] Name: GOKUL SERRANO Rep #: [id number] : 1970 Provider: Dr. Tracey tidwell MD Age/Sex: 53/F Location: [facility] Status: Signed Intake Vital Signs 11/03/24 09:58 Height 5 ft 5 in Weight: 182 lb BMI 30.2 BP 152/69 H Blood Pressure Location Rt brachial Position Sitting Respiration 17 Pulse 58 L Pulse Source Monitor Pulse Oximetry (%) 98 Oxygen Delivery Method room air Intake Visit Reasons: BIRADS 4 Chief Complaint: birads 4 Is patient in pain?: No Allergies No Known Allergies Allergy (Verified 11/03/24 09:59) Medications ???Medication ???Instructions ???Recorded ???Confirmed ???Type phentermine 7.5 mg-topiramate ER 1 cap PO QDAY 11/03/24 11/03/24 Hi story 46 mg capsule,ext.release 24hr mphase (Qsymia) PFSH Medical History (Updated 11/03/24 @ 09:52 by Jennifer Driver) Anxiety Pancreatitis Nausea vomiting Abdominal pain Surgical History S/P cholecystectomy Status post breast reduction S/P partial hysterectomy Family History (Updated 11/03/24 @ 09:56 by Jennifer Driver) Mother Breast cancer Diabetes Sister Breast cancer Diabetes Father Seizures Aunt Breast cancer Social History (Updated 11/03/24 @ 09:58 by Jennifer Driver) Smoking Status: Former smoker second hand exposure: No alcohol intake: current alcohol intake frequency: a few times a month substance use type: does not use caffeine: Yes what type of physical activity do you participate in: none frequency: does not exercise seatbelt use: always HPI HPI HPI: 53-year-old female presents due to abnormal left breast ultrasound. Patient denies any breast pain or trauma to her breast. Patient did previously have a breast reduction 31 years ago and did also undergo genetic testing previously due to family history which has been negative. Patient's ultrasound showed a hypoechoic had a generous, irregularly margined masslike density R areolar 4.1 x 3.7 x 1.3 recommended biopsy given a BI-RADS 4. Patient's age of menses 16, age at time of of first child N/A, family history of breast cancer Sister age 32, mom age 30 then reoccurred at age 45, maternal aunts about age 30, no previous breast biopsies. ROS General General: Yes weight change; No appetite, fatigue, colon cancer or breast cancer HEENT HEENT: No difficulty swallowing, eye injury, eye surgery, swollen glands or hoarseness Endo Endocrine: No thyroid disease, diabetes mellitus, thyroid cancer, Hair loss, heat intolerance or cold intolerance Skin Skin: No rash or changing moles Breast Breast: Yes abnormal mammogram and abnormal US; No left breast lump, right breast lump, nipple discharge, breast pain or breast enlargement Musc Musculoskeletal: No back problems, arthritis, rheumatoid arthritis, gout or joint pain Cardio Cardiovascular: No murmur, pacemaker, heart disease, atrial fibrillation, high blood pressure, heart attack, heart stent, palpitations, shortness of breath with exertion or chest pain Psych Psychiatric: No depression, anxiety or hearing voices Resp Respiratory: No shortness of breath, No sleep apnea, No cough, No COPD, No asthma, No emphysema and No wheezing Gastro Gastrointestinal: No abdominal pain, No nausea or vomiting, No diarrhea, No constipation, No blood in stool, No acid reflux, No hemorrhoids, No ulcers, No gallbladder problem and No black,tarry stools Aníbal Hematologic: No blood thinners, No blood disorders, No bleeding, No anemia and No blood clots Neuro Neurologic: No numbness and Yes tingling Exam Const General: cooperative, healthy appearing and no acute distress [facility] Head: normal to inspection Chest Other: Breast inspection: Symmetric bilaterally, status post breast reduction incisions well-healed Right breast: Fibroglandular tissue, no masses on appreciated on exam, no nipple discharge or pain, no change in overlying skin Left breast: Fibroglandular tissue, no masses on exam, no nipple discharge or pain, no change in overlying skin No axillary or supraclavicular adenopathy bilaterally Resp Effort Inspection: normal respiratory effort Cardio Rate: regular rate GI Inspection: non-distended Palpation: soft Skin General: no rashes or lesions noted Neuro General: patient oriented x3 Extrem General: no clubbing, cyanosis or edema Psych Affect: normal affect Assessment and Plan Assessment and Plan (1) Breast mass, right: Status: Acute Plan Patient currently has an upcoming vacation we will plan to schedule biopsy once patient returns. (more content not included)... Normal [facility] Breast Limited Unilateralon 10-31-2024 Breast Limited Unilateral [facility] Imaging Services [address] [place] [id number] Breast Limited Unilateral MR#: [id number] Acct: [id number] Name: GOKUL SERRANO Rep #: [id number] : 1970 F 53 From: Carol Ann Lopez PCP: Dr. Ino Tobias MD Status: DEP CLI Study: Breast Limited Unilateral Date of Exam: Exam# [id number] Ordering Dr: Ino Tobias MD ADDENDUM by Dr. Carol Ann Julian DO on 12/12/24 at 1244 Sh/and to the report. The right breast was imaged. Not the left breast TECHNIQUE: Right breast ultrasound. Reading Location: [id number] 12/12/24 1245 Date cc: Dr. Ino Tobias MD * Signed PROCEDURE: BREAST LIMITED UNILATERAL 10/31/2024 REASON FOR EXAM: RIGHT BREAST DENSITIES Inconclusive mammogram. Evaluate masslike densities.. TECHNIQUE: Targeted left breast ultrasound. COMPARISON: Mammogram studies dated 10/31/2024, 10/24/2024, and 07/06/2023 FINDINGS: There is a hypoechoic, heterogeneous, irregularly marginated, masslike density seen in the lateral areolar region covering an area measuring approximate 4.1 x 3.7 x 1.3 cm. This appears to have some calcifications within it. Biopsy is warranted in order to completely exclude a malignancy. There is a benign-appearing cyst identified at the 5 o'clock, 2 cm from nipple position measuring 4 x 4 x 4 mm. US/Breast Limited Unilateral IMPRESSION: Impression: The mass in the lateral areolar region should be biopsied is noted completely exclude a malignancy. Birads: BI-RADS 4: SUSPICIOUS ABNORMALITY. Reading Location: [id number] CC: Dr. Ino Tobias MD Tunnel Drier Operator: Signed Normal [facility] Breast imaging reportOrdered By: Carol Ann Julian on 10-31-2024 Study report [facility] Imaging Services [address] [place] [id number] DIAG MAMM W/CAD, UNILAT MR#: [id number] Acct: [id number] Name: GOKUL SERRANO Rep #: [id number] : 1970 F 53 From: Hema Julian DO PCP: Dr. Ino Tobias MD Status: REG C LI Study:DIAG MAMM W/CAD, UNILAT Date of Exam: 10/31/24 Exam# [id number] Ordering Dr: Ino Tobias MD EXAM: Digital unilateral mammogram left breast with taylor. CLINICAL HISTORY: Inconclusive screening mammogram study dated 10/24/2024 showed lobulated nodularmasslike densities in the right breast. Evaluate. COMPARISON: Mammogram dated 10/24/2024 and 07/06/2023 TECHNIQUE: ML view of the right breast was performed as well as spot compression CC and spot compression MLO views of the right breast lobulated nodular masslike densities. FINDINGS: There is a 4 cm, ill-defined, masslike density in the lateral, far anterior aspect of the right breast and areolar region which does persist on the ML view and does not disperse on the spot compression views. Further workup with ultrasound will be performed for further evaluation. There is a 5 mm, partially obscured, isodensemass in the lower inner quadrant. This is best appreciated on the spot compression views. Further workup with ultrasound will be performed. Benign macrocalcifications and round microcalcifications are seen in the breasts. BI/DIAG MAMM W/CAD, UNILAT IMPRESSION: BI-RADS category A/0. Incomplete. The mass and masslike density in the right breast will be further worked up with ultrasound. Please see that report. Reading Location: [id number] CC: Dr. Ino Tobias MD ~ Tunnel Drier Operator: Signed [facility] DIAG MAMM W/CAD, UNILATon DIAG MAMM W/CAD, UNILAT [facility] Imaging Services [address] [place] [address] [id number] DIAG MAMM W/CAD, UNILAT MR#: [id number] Acct: [id number] Name: GOKUL SERRANO Rep #: [id number] : 1970 F 53 From: Carol Ann Lopez PCP: Dr. Ino Tobias MD Status: REG CLI Study: DIAG MAMM W/CAD, UNILAT Date of Exam: 10/31/24 Exam# [id number] Ordering Dr: Ino Tobias MD EXAM: Digital unilateral mammogram left breast with taylor. CLINICAL HISTORY: Inconclusive screening mammogram study dated 10/24/2024 showed lobulated nodular masslike densities in the right breast. Evaluate. COMPARISON: Mammogram dated 10/24/2024 and 07/06/2023 TECHNIQUE: ML view of the right breast was performed as well as spot compression CC and spot compression MLO views of the right breast lobulated nodular masslike densities. FINDINGS: There is a 4 cm, ill-defined, masslike density in the lateral, far anterior aspect of the right breast and areolar region which does persist on the ML view and does not disperse on the spot compression views. Further workup with ultrasound will be performed for further evaluation. There is a 5 mm, partially obscured, isodense mass in the lower inner quadrant. This is best appreciated on the spot compression views. Further workup with ultrasound will be performed. Benign macrocalcifications and round microcalcifications are seen in the breasts. BI/DIAG MAMM W/CAD, UNILAT IMPRESSION: BI-RADS category A/0. Incomplete. The mass and masslike density in the right breast will be further worked up with ultrasound. Please see that report. Reading Location: [facility] CC: Dr. Ino Tobias MD Tunnel Drier Operator: Signed Normal [facility] Breast imaging reportOrdered By: Carol Ann Julian on 10-26-2024 Study report [facility] Imaging Services [address] [place], [place] [address], [place] [address] SCRN MAMM (CAD)W/TAYLOR BILAT MR#: [id number] Acct: [id number] Name: GOKUL SERRANO Rep #: [id number] : 1970 F 53 From: Hema Julian DO PCP: Dr. Ino Tobias MD Status: REG C ALEX Study:SCRN MAMM (CAD)W/TAYLOR BILAT Date of Exa m: 10/24/24 Exam# [id number] Ordering Dr: Ino Tobias MD EXAM: PROCEDURE: MA Mammogram Digital Screen CLINICAL HISTORY: Screening COMPARISON: Mammogram studies dated 07/06/2023 and 08/13/2021 TECHNIQUE: A bilateral screening mammogram was obtained with MLO and CC views of both breasts with digital breast tomosynthesis. BREAST CANCER RISK ASSESSMENT: Does not appear to have been calculated. FINDINGS: There are lobulated nodular masslike densities seen in the retroareolar region, lateral and medial aspect of the right breast. The largest measures approximately 19 mm. These are obscured by the heterogeneously dense breast tissue. Further workup is indicated. Benign-appearing round microcalcifications and macrocalcifications are seen in the right breast. Benign-appearing round microcalcifications and macrocalcifications are seen in the left breast. Stable lobulated nodular masslike densities are seen. No suspicious masses, suspicious calcifications orother suspicious mammogram findings are seen in the left breast. CONCLUSION: Right Breast: BI-RADS category 0, incomplete, additional imaging needed. Left Breast: BI-RADS category 2, benign findings Breast Composition: The breasts are heterogeneously dense, which may obscure small masses. Recommendation: Diagnostic mammogram and ultrasound The patient should return for an LM view of the right breast as well as spot compression CC and spot compression MLO view of the right breast lobulated nodular masslike densities. An ultrasound will also most likely be needed. Thank you for referring your patient to the [facility], if you have any questions, please call us at the performing site listed at the top of the report. [facility] , [facility] , [facility] and [employer] . Reading Location: [facility] CC: Dr. Ino Tobias MD ~ Tunnel Drier Operator: Signed [facility] SCRN MAMM (CAD)W/TAYLOR BILATo n 10-24-2024 SCRN MAMM (CAD)W/TAYLOR BILAT [facility] Imaging Services [address] [place], [place] [address] SCRN MAMM (CAD)W/TAYLOR BILAT MR#: [id number] Acct: [id number] Name: GOKUL SERRANO Rep #: [id number] : 1970 F 53 From: Carol Ann Lopez PCP: Dr. Ino Tobias MD Status: REG CLI Study: SCRN MAMM (CAD)W/TAYLOR BILAT Date of Exam: 10/02 11/25 Exam# [id number] Ordering Dr: Ino Tobias MD EXAM: PROCEDURE: MA Mammogram Digital Screen CLINICAL HISTORY: Screening COMPARISON: Mammogram studies dated 07/06/2023 and 08/13/2021 TECHNIQUE: A bilateral screening mammogram was obtained with MLO and CC views of both breasts with digital breast tomosynthesis. BREAST CANCER RISK ASSESSMENT: Does not appear to have been calculated. FINDINGS: There are lobulated nodular masslike densities seen in the retroareolar region, lateral and medial aspect of the right breast. The largest measures approximately 19 mm. These are obscured by the heterogeneously dense breast tissue. Further workup is indicated. Benign-appearing round microcalcifications and macrocalcifications are seen in the right breast. Benign-appearing round microcalcifications and macrocalcifications are seen in the left breast. Stable lobulated nodular masslike densities are seen. No suspicious masses, suspicious calcifications or other suspicious mammogram findings are seen in the left breast. CONCLUSION: Right Breast: BI-RADS category 0, incomplete, additional imaging needed. Left Breast: BI-RADS category 2, benign findings Breast Composition: The breasts are heterogeneously dense, which may obscure small masses. Recommendation: Diagnostic mammogram and ultrasound The patient should return for an LM view of the right breast as well as spot compression CC and spot compression MLO view of the right breast lobulated nodular masslike densities. An ultrasound will also most likely be needed. Thank you for referring your patient to the [facility], if you have any questions, please call us at the performing site listed at the top of the report. [facility] , [facility] , [facility] and [employer] [facility] . Reading Location: [id number] CC: Dr. Ino Tobias MD Tunnel Drier Operator: Signed Normal [facility] Basic Metabolic Profile (BMP )on 09-14-2024 BUN/CRE 14.3 RATIO Normal 10-20 [facility] Comment on above: Order Comment: TSH Performed By: #### L 500.2500, L501.9520, L500.4100 #### [facility] [address] [place], [address] CA,Total 9.5 mg/dL Normal 8.5-10.1 [facility] Comment on above: Order Comment: TSH Performed By: #### L 500.2500, L501.9520, L500.4100 #### [facility] [address] [place], [address] EST GFR - AA 92 mL/min Normal >60 [facility] Comment on above: Order Comment: TSH Result Comment: Afri can Togolese GFR Calc Performed By: #### L 500.2500, L501.9520, L500.4100 #### [facility] [address] [place], [address] GAP 7 Normal 5-15 [facility] Comment on above: Order Comment: TSH Performed By: #### L 500.2500, L501.9520, L500.4100 #### [facility] [address] [place], [address] GFR/1.73 sq M.predicted among non-blacks MDRD (S/P/Bld) [Vol rate/Area] 76 mL/min/{1.73_m2} Normal >60 [facility] Comment on above: Order Comment: TSH Result Comment: Non- GFR Calc Performed By: #### L 500.2500, L501.9520, L500.4100 #### [facility] [address] [place], [place], [address] Blood urea nitrogen (BUN)/cr eatinine ratioOrdered By: Ino Tobias on 09-14-2024 Urea nitrogen/Creatinine [Mass ratio] 14.3 mg/mg 10-20 [facility] Carbon dioxide measurementOr dered By: Ino Tobias on 09-14-2024 CO2 [Moles/Vol] 24.0 mmol/L Normal 21.0-32.0 [facility] Comment on above: Order Comment: TSH Performed By: #### L 500.2500, L501.9520, L500.4100 #### [facility] [address] [place], [place], [address] Chloride measurementOrdered By: Ino Tobias on 09-14-2024 Chloride [Moles/Vol] 108 mmol/L High 98-107 [facility] Comment on above: Order Comment: TSH Performed By: #### L 500.2500, L501.9520, L500.4100 #### [facility] [address] [place], [place], [address] Estimated glomerular filtrat ion rate (GFR) AmericanOrdered By: Ino Tobias on 09-14-2024 Estimated GFR (MDRD) Amer 92 mL/min >60 [facility] Comment on above: GFR Calc Glomerular filtration rate ( GFR) estimationOrdered By: Ino Tobias on 09-14-2024 Estimated GFR (MDRD) Non-Af Amer 76 mL/min >60 [facility] Comment on above: Non- GFR Calc Glucose measurementOrdered B y: Ino Tobias on 09-14-2024 Glucose [Mass/Vol] 112 mg/dL High 74-106 [facility] Comment on above: Fasting Glucose resu lt from 100 to 125 mg/dL suggests IMPAIRED HOMEOSTASIS per A.D.A. criteria. Order Comment: TSH Result Comment: Fast ing Glucose result from 100 to 125 mg/dL suggests IMPAIRED HOMEOSTASIS per A.D.A. criteria. Performed By: #### L 500.2500, L501.9520, L500.4100 #### [facility] [address] [place], [address] High density lipoprotein (HD L) measurementOrdered By: Ino Tobias on 09-14-2024 Cholesterol in HDL [Mass/Vol] 55 mg/dL Normal [facility] Comment on above: The drugs N-Acetylcy steine and Metamizole may falsely depress this assay. Reference Range HDL <40 mg/dL Low HDL Cholesterol HDL >or= 60 mg/dL High HDL Cholesterol Result Comment: The drugs N-Acetylcysteine and Metamizole may falsely depress this assay. Reference Range HDL <40 mg/dL Low HDL Cholesterol HDL >or= 60 mg/dL High HDL Cholesterol Performed By: #### L 500.2500, L501.9520, L500.4100 #### [facility] [address] [place], [address] Lipid Profileon 09-14-2024 Cholesterol in VLDL [Mass/Vol] 30 mg/dL Normal 5-40 [facility] Comment on above: Performed By: #### L 500.2500, L501.9520, L500.4100 #### [facility] [address] [place], [address] Low density lipoprotein (LDL ) cholesterol measurementOrdered By: Ino Tobias on 09-14-2024 Cholesterol in LDL [Mass/Vol] 148 mg/dL High 0-130 [facility] Comment on above: Performed By: #### L 500.2500, L501.9520, L500.4100 #### [facility] [address] [place], [address] Potassium measurementOrdered By: Ino Tobias on 09-14-2024 Potassium [Moles/Vol] 4.1 mmol/L Normal 3.5-5.1 [facility] Comment on above: Slight Hemolysis, Re sult may be falsely increased. Order Comment: TSH Result Comment: Slig ht Hemolysis, Result may be falsely increased. Performed By: #### L 500.2500, L501.9520, L500.4100 #### [facility] [address] [place], [address] Serum anion gap measurementO rdered By: Ino Tobias on 09-14-2024 Anion gap [Moles/Vol] 7 mmol/L 5-15 [facility] Serum or plasma calcium aldo urement (mass/volume)Ordered By: Ino Tobias on 09-14-2024 Calcium [Mass/Vol] 9.5 mg/dL 8.5-10.1 [facility] Serum or plasma cholesterol measurement (mass/volume)Ordered By: Ino Tobias on 09-14-2024 Cholesterol [Mass/Vol] 233 mg/dL High 200 [facility] Comment on above: <200 mg/dL Desirable 200-240 mg/dL Borderline >240 mg/dL High Risk Result Comment: <200 mg/dL Desirable 200-240 mg/dL Borderline >240 mg/dL High Risk Performed By: #### L 500.2500, L501.9520, L500.4100 #### [facility] [address] [place], [address] Serum or plasma creatinine m easurement (mass/volume)Ordered By: Ino Tobias on 09-14-2024 Creatinine [Mass/Vol] 0.84 mg/dL Normal 0.55-1.02 [facility] Comment on above: The validity of the calculated GFR & GFRAA in patients over 70 years has not been determined. Clinical correlation is essential. Order Comment: TSH Result Comment: The validity of the calculated GFR GFRAA in patients over 70 years has not been determined. Clinical correlation is essential. Performed By: #### L 500.2500, L501.9520, L500.4100 #### [facility] [address] [place], [address] Serum or plasma urea nitroge n measurement (mass/volume)Ordered By: Ino Tobias on 09-14-2024 Urea nitrogen [Mass/Vol] 12 mg/dL Normal 7-18 [facility] Comment on above: Order Comment: TSH Performed By: #### L 500.2500, L501.9520, L500.4100 #### [facility] [address] [place], [address] Sodium levelOrdered By: Ino Tobias on 09-14-2024 Sodium [Moles/Vol] 138 mmol/L Normal 136-145 [facility] Comment on above: Order Comment: TSH Performed By: #### L 500.2500, L501.9520, L500.4100 #### [facility] [address] [place], [address] TSH QnOrdered By: Ino hawthorne on 09-14-2024 Thyroid Stimulating Hormone (TSH) 2.030 uIU/mL 0.358-3.740 [facility] Thyroid Stim Hormone (TSH)on 09-14-2024 TSH 2.030 uIU/mL Normal 0.358-3.740 [facility] Comment on above: Performed By: #### L 500.2500, L501.9520, L500.4100 #### [facility] [address] [place], [address] Triglycerides measurementOrd ered By: Ino Tobias on 09-14-2024 Triglyceride [Mass/Vol] 152 mg/dL Normal [facility] Comment on above: The drugs N-Acetylcy steine and Metamizole may falsely depress this assay.Serum Triglycerides Reference Interval Normal <150 mg/dL Borderline high 150 - 199 mg/dL High 200 - 499 mg/dL Very High > or = 500 mg/dL Result Comment: The drugs N-Acetylcysteine and Metamizole may falsely depress this assay. Serum Triglycerides Reference Interval Normal <150 mg/dL Borderline high 150 - 199 mg/dL High 200 - 499 mg/dL Very High > or = 500 mg/dL Performed By: #### L 500.2500, L501.9520, L500.4100 #### [facility] [address] [place], [address] Very low density lipoprotein (VLDL) cholesterol measurementOrdered By: Ino Tobias on 09-14-2024 VLDL Cholesterol 30 mg/dL 5-40 [facility] INHOUSE Rapid Covid/ Flu A/ Flu BOrdered By: Aria Duque on 05-15-2021 SARS-CoV-2 (COVID-19) RNA ARMIDA+probe Ql (Unsp spec) Negative Normal [facility]; [facility] Work Phone: URINE SARAH BETH CULTURE-IDENTIFICA [place] ([phone])Ordered By: Neonatal Doctor on 02-17-2018 Bacteria identified Cx Nom (U) Final report Abnormal [facility]; [facility] Work Phone: Comment on above: PATIENT NOT FASTINGP ERFORMED BY: PHOEBE [employer] [place] [id number] Information: [id number] Bacteria identified Cx Nom (U) Escherichia coli Abnormal [facility]; [facility] Work Phone: Comment on above: 10,000-25,000 colony forming units per mL PATIENT NOT FASTINGP ERFORMED BY: PHOEBE [employer] [place] [id number] Information: [id number] Other Antibiotic [Susc] MIHEAD Normal [facility]; [facility] Work Phone: Comment on above: S = Susceptible; I = Intermediate; R = Resistant P = Positive; N = Negative MICS are expressed in micrograms per mL Antibiotic RSLT#1 RSLT#2 RSLT#3 RSLT#4Amoxicillin/Clavulanic Acid SAmpicillin SCefepime SCeftriaxone SCefuroxime SCiprofloxacin SErtapenem SGentamicin SImipenem SLevofloxacin SMeropenem SNitrofurantoin IPiperacillin/Tazobactam STetracycline STobramycin STrimethoprim/Sulfa S; ADDENDA: susept to cipro PATIENT NOT FASTINGP ERFORMED BY: PHOEBE [facility] [id number] Information: [id number] Urinalysis, Office ([id number])Or dered By: Jessica Moreno on 02-17-2018 Bilirubin Ql (U) Small Normal Comprehe nsive [facility] Medicine; [facility] Work Phone: Glucose Test strip (U) [Mass/Vol] 100 1 Abnormal [facility]; [facility] Work Phone: Hemoglobin Ql (U) Hemolyzed Small Normal Co m[facility]; [facility] Work Phone: Ketones Ql (U) 40 mg/dL Abnormal Comprehens e[facility]io [facility]; [facility] Work Phone: Leukocyte esterase Test strip Ql (U) Large Normal [facility]; [facility] Work Phone: Nitrite Ql (U) Positive Normal Comprehens [facility]; [facility] Work Phone: pH (U) 6 [pH] Abnormal [facility]; [facility] Work Phone: Protein Ql (U) 30 mg/dL Normal Comprehens [facility]; [facility] Work Phone: Specific gravity (U) [Rel density] 1.015 1 Normal [facility]; [facility] Work Phone: Urobilinogen (24H U) [Mass/Time] Normal Normal [facility]; [facility] Work Phone: KATTY (ANTINUCLEAR ANTIBODY) ( [phone])Ordered By: Neonatal Doctor on 08-26-2017 Nuclear Ab Ql (S) Negative Normal Compre[facility]; [facility] Work Phone: Comment on above: PATIENT NOT FASTINGP ERFORMED BY: [employer] [place] [id number] ANTI-LIVER/KIDNEY MICROSOMAL ANTIBODY ([id number])Ordered By: Neonatal Doctor on 08-26-2017 Liver kidney microsomal 1 Ab Qn (S) <1.0 Normal 0.0-20.0 [facility]; [facility] Work Phone: Comment on above: Negative 0.0 - 20.0 Equivocal 20.1 - 24.9 Positive >24.9 . LKM type 1 antibodies are detected in patients with autoimmune hepatitis type 2 and in up to 8% of patients with chronic HCV infection. PATIENT NOT FASTINGP ERFORMED BY: [id number] [place] [id number] ANTIMITOCHONDRIAL ANTIBODY ( [id number])Ordered By: Neonatal Doctor on 08-26-2017 Mitochondria M2 IgG Qn (S) <20.0 Normal 0.0-20.0 [facility]; [facility] Work Phone: Comment on above: Negative 0.0 - 20.0 Equivocal 20.1 - 24.9 Positive >24.9 . Mitochondrial (M2) Antibodies are found in 90-96% of patients with primary biliary cirrhosis. PATIENT NOT FASTINGP ERFORMED BY: [facility] [id number] ASM (ANTI SMOOTH MUSCLE ANTI BODY) ([id number])Ordered By: Neonatal Doctor on 08-26-2017 Actin IgG Qn 12 {Units} Normal 0-19 Comprehensiv e [facility]; [facility] Work Phone: Comment on above: Negative 0 - 19 Weak positive 20 - 30 Moderate to strong positive >30 . Actin Antibodies are found in 52-85% of patients with autoimmune hepatitis or chronic active hepatitis and in 22% of patients with primary biliary cirrhosis. PATIENT NOT FASTINGP ERFORMED BY: [facility] [id number] CERULOPLASMIN ([id number])Ordered By: Neonatal Doctor on 08-26-2017 Ceruloplasmin [Mass/Vol] 33.1 mg/dL Normal 19.0-39.0 [facility]; [facility] Work Phone: Comment on above: PATIENT NOT FASTINGP ERFORMED BY: [facility] [id number] CMV IGM ANTBDY ([id number])Ordere d By: Neonatal Doctor on 08-26-2017 CMV IgM IA Qn <30.0 Normal 0.0-29.9 Comprehensi ve Internal Medicine; [facility] Work Phone: Comment on above: Negative <30.0 Equiv ocal 30.0 - 34.9 Positive >34.9 A positive result is generally indicative of acute infection, reactivation or persistent IgM production. PATIENT NOT FASTINGP ERFORMED BY: [facility] [id number] FERRITIN ([id number])Ordered By: Neonatal Doctor on 08-26-2017 Ferritin [Mass/Vol] 465 ng/mL Abnormal 15-150 [facility]; [facility] Work Phone: Comment on above: PATIENT NOT FASTINGP ERFORMED BY: CB [facility] [id number] RoadDublin [place] [id number] GGT (GAMMA GLUTAMYLTRANSFERA SE) ([id number])Ordered By: Neonatal Doctor on 08-26-2017 Gamma glutamyl transferase [Catalytic activity/Vol] 46 U/L Normal 0-60 [facility]; [facility] Work Phone: Comment on above: PATIENT NOT FASTINGP ERFORMED BY: CB [facility] [id number] RoadDublin [place] [id number] HEPATIC FUNCTION PANEL ([id number])Ordered By: Neonatal Doctor on 08-26-2017 Albumin [Mass/Vol] 4.4 g/dL Normal 3.5-5.5 [facility]; [facility] Work Phone: Comment on above: PATIENT NOT FASTINGP ERFORMED BY: CB [facility] [id number] RoadDublin [place] [id number] ALP [Catalytic activity/Vol] 71 U/L Normal 39-117 [facility]; [facility] Work Phone: Comment on above: PATIENT NOT FASTINGP ERFORMED BY: CB [facility] [id number]Dublin [place] [id number] ALT [Catalytic activity/Vol] 56 U/L Abnormal 0-32 [facility]; [facility] Medicine Work Phone: Comment on above: PATIENT NOT FASTINGP ERFORMED BY: CB [facility] [id number] [address] RoadDublin [place] [id number] AST [Catalytic activity/Vol] 36 U/L Normal 0-40 [facility]; [facility] Work Phone: Comment on above: PATIENT NOT FASTINGP ERFORMED BY: CB [facility] [id number] [address]Dublin [place] [id number] Bilirubin [Mass/Vol] 0.3 mg/dL Normal 0.0-1.2 [facility]; [facility] Work Phone: Comment on above: PATIENT NOT FASTINGP ERFORMED BY: PHOEBE LabOlegario Gpjctz2556 [facility] [id number] Bilirubin.direct [Mass/Vol] 0.09 mg/dL Normal 0.00-0.40 [facility]; [facility] Work Phone: Comment on above: PATIENT NOT FASTINGP ERFORMED BY: PHOEBE [facility] [id number] [facility] [id number] Protein [Mass/Vol] 7.2 g/dL Normal 6.0-8.5 [facility] Internal Medicine; [facility] Internal Medicine Work Phone: Comment on above: PATIENT NOT FASTINGP ERFORMED BY: PHOEBE LabOlegario [id number] [facility] [id number] HEPATITIS PANEL ([id number])Order ed By: Neonatal Doctor on 08-26-2017 HAV IgM IA Ql Negative Normal [facility]; [facility] Internal Medicine Work Phone: Comment on above: PATIENT NOT FASTINGP ERFORMED BY: [facility] [id number] [facility] [id number] HBV core IgM IA Ql Negative Normal [facility] Internal Medicine; [facility] Internal Medicine Work Phone: Comment on above: PATIENT NOT FASTINGP ERFORMED BY: PH[facility]BE [facility] [id number] [facility] [id number] HBV surface Ag IA Ql Negative Normal [facility]; [facility] Internal Medicine Work Phone: Comment on above: PATIENT NOT FASTINGP ERFORMED BY: [facility] Utgcle2722 [facility] [id number] HCV Ab Signal/Cutoff IA [Rel units/Vol] {ratio} Normal 0.0-0.9 [facility]; [facility] Work Phone: Comment on above: Negative: < 0.8 Inde terminate: 0.8 - 0.9 Positive: > 0.9 . The CDC recommends that a positive HCV antibody result be followed up with a HCV Nucleic Acid Amplification test (571268). PATIENT NOT FASTINGP ERFORMED BY: PHOEBE [facility] Oftjfd2488 [address]Dublin [place] [id number] SED RATE ERYTHROCYTE ([id number]) Ordered By: Neonatal Doctor on 08-26-2017 ESR (Bld) [Velocity] 37 mm/h Abnormal 0-32 Comp rehensive [facility] Medicine; [facility] Work Phone: Comment on above: PATIENT NOT FASTINGP ERFORMED BY: CB [facility] Pwdqqb3592 [address]Dublin [place] [id number] TRANSFERRIN ([id number])Ordered B y: Neonatal Doctor on 08-26-2017 Transferrin [Mass/Vol] 242 mg/dL Normal 200-370 [facility]; [facility] Work Phone: Comment on above: PATIENT NOT FASTINGP ERFORMED BY: PHOEBE [facility] Jhxtpi4909 [address]Dublin [place] [id number] Amylase ([id number])Ordered By: Anna Marie ystem Self Pay Specialist on 08-21-2017 Amylase [Catalytic activity/Vol] 30 U/L Abnormal 31-124 [facility]; [facility] Work Phone: Comment on above: PATIENT NOT FASTINGP ERFORMED BY: PHOEBE [facility] Zfvtrf0173 [address]Dublin [place] [id number] CBC with auto diff ([id number])Or dered By: Neonatal Doctor on 08-21-2017 Basophils (Bld) [#/Vol] 0.1 10*3/uL Normal 0.0-0.2 [facility]; [facility] Work Phone: Comment on above: PATIENT NOT FASTINGP ERFORMED BY: CB [facility] Etabhh2572 [address] [place] [id number] Basophils/100 WBC (Bld) 1 % Normal [facility]; [facility] Work Phone: Comment on above: PATIENT NOT FASTINGP ERFORMED BY: CB [facility] [id number] [address]Dublin [place] [id number] Eosinophils (Bld) [#/Vol] 0.1 10*3/uL Normal 0.0-0.4 [facility]; [facility] Work Phone: Comment on above: PATIENT NOT FASTINGP ERFORMED BY: CB [facility] [id number] [address]Dublin [place] [id number] Eosinophils/100 WBC (Bld) 1 % Normal [facility]; [facility] Work Phone: Comment on above: PATIENT NOT FASTINGP ERFORMED BY: CB [facility] Xhwziz2781 [address] [place] [id number] Erythrocyte distribution width (RBC) [Ratio] 12.9 % Normal 12.3-15.4 [facility]; [facility] Work Phone: Comment on above: PATIENT NOT FASTINGP ERFORMED BY: CB [facility] Vemsjm2526 [address]Dublin [place] [id number] Hematocrit (Bld) [Volume fraction] 43.3 % Normal 34.0-46.6 [facility]; [facility] Work Phone: Comment on above: PATIENT NOT FASTINGP ERFORMED BY: CB [facility] Ahzoor1267 [address]Dublin [place] [id number] Hemoglobin (Bld) [Mass/Vol] 14.5 g/dL Normal 11.1-15.9 [facility]; [facility] Work Phone: Comment on above: PATIENT NOT FASTINGP ERFORMED BY: CB [facility] Zlhqqm0006 [address] [place] [id number] Immature granulocytes (Bld) [#/Vol] 0.0 10*3/uL Normal 0.0-0.1 [facility]; [facility] Work Phone: Comment on above: PATIENT NOT FASTINGP ERFORMED BY: CB [facility] Ltynwx7835 [address]Dublin [place] [id number] Immature granulocytes/100 WBC (Bld) 0 % Normal [facility]; [facility] Work Phone: Comment on above: PATIENT NOT FASTINGP ERFORMED BY: CB [facility] Ucazaa0676 [address] [place] [id number] Lymphocytes (Bld) [#/Vol] 3.3 10*3/uL Abnormal 0.7-3.1 [facility]; [facility] Work Phone: Comment on above: PATIENT NOT FASTINGP ERFORMED BY: CB [facility] Zllbpj1785 [address] [place] [id number] Lymphocytes/100 WBC (Bld) 34 % Normal [facility]; [facility] Work Phone: Comment on above: PATIENT NOT FASTINGP ERFORMED BY: CB [facility] Uixabh8994 [address] [place] [id number] MCH (RBC) [Entitic mass] 31.6 pg Normal 26.6-33.0 [facility]; [facility] Work Phone: Comment on above: PATIENT NOT FASTINGP ERFORMED BY: CB [facility] Mcmmoy9590 [address] [place] [id number] MCHC (RBC) [Mass/Vol] 33.5 g/dL Normal 31.5-35.7 [facility] prehensive Internal Medicine; [facility] Work Phone: Comment on above: PATIENT NOT FASTINGP ERFORMED BY: CB [facility] Wtxkyb3546 [address]Dublin [place] [id number] MCV (RBC) [Entitic vol] 94 fL Normal 79-97 [facility]; [facility] Work Phone: Comment on above: PATIENT NOT FASTINGP ERFORMED BY: CB [facility] Tcapol5354 [address] [place] [id number] Monocytes (Bld) [#/Vol] 0.9 10*3/uL Normal 0.1-0.9 [facility]; [facility] Work Phone: Comment on above: PATIENT NOT FASTINGP ERFORMED BY: CB [facility] Gskkts4563 [address]Dublin [place] [id number] Monocytes/100 WBC (Bld) 10 % Normal [facility]; [facility] Work Phone: Comment on above: PATIENT NOT FASTINGP ERFORMED BY: CB [facility] Liksgu0076 [address]Dublin [place] [id number] Neutrophils (Bld) [#/Vol] 5.2 10*3/uL Normal 1.4-7.0 [facility]; [facility] Work Phone: Comment on above: PATIENT NOT FASTINGP ERFORMED BY: PHOEBE LabIrais Erazo6370 [address]Dublin [place] [id number] Neutrophils/100 WBC (Bld) 54 % Normal [facility]; [facility] Work Phone: Comment on above: PATIENT NOT FASTINGP ERFORMED BY: PHOEBE LabIrais MckeonQvjdup3300 [address]Dublin [place] [id number] Platelets (Bld) [#/Vol] 449 10*3/uL Abnormal 150-379 [facility]; [facility] Work Phone: Comment on above: PATIENT NOT FASTINGP ERFORMED BY: PHOEBE LabIrais MckeonDasear1336 [address] RoadDublin [place] [id number] RBC (Bld) [#/Vol] 4.59 10*6/uL Normal 3.77-5.28 [facility]; [facility] Work Phone: Comment on above: PATIENT NOT FASTINGP ERFORMED BY: PHOEBE LabCobecca MckeonIiilio8384 [address] RoadDublin [place] [id number] WBC (Bld) [#/Vol] 9.5 10*3/uL Normal 3.4-10.8 [facility]; [facility] Work Phone: Comment on above: PATIENT NOT FASTINGP ERFORMED BY: PHOEBE LabCobecca Cnxhmq4012 [address]Dublin [place] [id number] Lipase ([id number])Ordered By: Sy stem Self Pay Specialist on 08-21-2017 Lipase [Catalytic activity/Vol] 46 U/L Normal 14-72 [facility]; [facility] Work Phone: Comment on above: PATIENT NOT FASTINGP ERFORMED BY: PHOEBE [facility] Sfwrak5069 [address]Dublin [place] [id number] Metabolic Panel, Comprehensi ve ([id number])Ordered By: Neonatal Doctor on 08-21-2017 Albumin [Mass/Vol] 4.4 g/dL Normal 3.5-5.5 [facility]; [facility] Work Phone: Comment on above: PATIENT NOT FASTINGP ERFORMED BY: PHOEBE LabCobecca Tuerea2007 [address]Dublin [place] [id number] Albumin/Globulin [Mass ratio] 1.5 {ratio} Normal 1.2-2.2 [facility]; [facility] Work Phone: Comment on above: PATIENT NOT FASTINGP ERFORMED BY: CB LabIrais MckeonPvorvx7092 [address]Dublin [place] [id number] ALP [Catalytic activity/Vol] 74 U/L Normal 39-117 [facility]; [facility] Work Phone: Comment on above: PATIENT NOT FASTINGP ERFORMED BY: PHOEBE LabCobecca MckeonOwjqxd2412 [address] RoadDublin [place] [id number] ALT [Catalytic activity/Vol] 79 U/L Abnormal 0-32 [facility]; [facility] Work Phone: Comment on above: PATIENT NOT FASTINGP ERFORMED BY: PHOEBE LabIrais MckeonAfiump3323 [address] RoadDublin [place] [id number] AST [Catalytic activity/Vol] 46 U/L Abnormal 0-40 [facility]; [facility] Work Phone: Comment on above: PATIENT NOT FASTINGP ERFORMED BY: PHOEBE Mckeonlin6370 [address]Dublin [place] [id number] Bilirubin [Mass/Vol] 0.3 mg/dL Normal 0.0-1.2 Comp rehensive [facility]; [facility] Work Phone: Comment on above: PATIENT NOT FASTINGP ERFORMED BY: PHOEBE [facility] Upmxfe4103 [address]Dublin [place] [id number] Calcium [Mass/Vol] 9.7 mg/dL Normal 8.7-10.2 [facility]; [facility] Work Phone: Comment on above: PATIENT NOT FASTINGP ERFORMED BY: PHOEBE [facility] Yfzfvr6585 [address] RoadDublin [place] [id number] Chloride [Moles/Vol] 101 mmol/L Normal 96-106 Comp rehensive [facility]; [facility] Work Phone: Comment on above: PATIENT NOT FASTINGP ERFORMED BY: CB [facility] Thnmzq4871 [address] RoadD[address] [place] [id number] CO2 [Moles/Vol] 23 mmol/L Normal 18-29 [facility]; [facility] Work Phone: Comment on above: PATIENT NOT FASTINGP ERFORMED BY: CB [facility] Dgovgq3431 [address] RoadDublin [place] [id number] Creatinine [Mass/Vol] 0.83 mg/dL Normal 0.57-1.00 [facility] prehensive Internal Medicine; [facility] Work Phone: Comment on above: PATIENT NOT FASTINGP ERFORMED BY: CB [facility] Ipzfiq8559 [address]Dublin [place] [id number] GFR/1.73 sq M.predicted among blacks CKD-EPI (S/P/Bld) [Vol rate/Area] 99 mL/min/1.73 Normal [facility]; [facility] Work Phone: Comment on above: PATIENT NOT FASTINGP ERFORMED BY: CB [facility] Grgray3851 [address] [place] [id number] GFR/1.73 sq M.predicted among non-blacks CKD-EPI (S/P/Bld) [Vol rate/Area] 86 mL/min/1.73 Normal [facility]; [facility] Work Phone: Comment on above: PATIENT NOT FASTINGP ERFORMED BY: CB [facility] Znzxjn4647 [address]Dublin [place] [id number] Globulin (S) [Mass/Vol] 3.0 g/dL Normal 1.5-4.5 [facility]; [facility] Work Phone: Comment on above: PATIENT NOT FASTINGP ERFORMED BY: CB [facility] Ixbgnf0780 [address] [place] [id number] Glucose [Mass/Vol] 103 mg/dL Abnormal 65-99 [facility]; [facility] Work Phone: Comment on above: PATIENT NOT FASTINGP ERFORMED BY: CB [facility] Lpegeg4356 [address] RoadDuin [place] [id number] Potassium [Moles/Vol] 4.5 mmol/L Normal 3.5-5.2 [facility]; [facility] Work Phone: Comment on above: PATIENT NOT FASTINGP ERFORMED BY: PHOEBE [facility] Zosrzl0625 [address]Dublin [place] [id number] Protein [Mass/Vol] 7.4 g/dL Normal 6.0-8.5 [facility]; [facility] Work Phone: Comment on above: PATIENT NOT FASTINGP ERFORMED BY: PHOEBE [facility] Aekoug3666 [address] RoadDublin [place] [id number] Sodium [Moles/Vol] 142 mmol/L Normal 134-144 [facility]; [facility] Work Phone: Comment on above: PATIENT NOT FASTINGP ERFORMED BY: PHOEBE [facility] Gayplr6195 [address] RoadDublin [place] [id number] Urea nitrogen [Mass/Vol] 10 mg/dL Normal 6-24 [facility]; [facility] Work Phone: Comment on above: PATIENT NOT FASTINGP ERFORMED BY: PHOEBE [facility] Rjrijh0351 [address] RoadDublin [place] [id number] Urea nitrogen/Creatinine [Mass ratio] 12 mg/mg Normal 9-23 [facility]; [facility] Work Phone: Comment on above: PATIENT NOT FASTINGP ERFORMED BY: CB [facility] Izlfgp2993 [address] [place] [id number] Sed Rate Erythrocyte ([id number]) Ordered By: Neonatal Doctor on 08-21-2017 ESR (Bld) [Velocity] 40 mm/h Abnormal 0-32 [facility]; [facility] Work Phone: Comment on above: PATIENT NOT FASTINGP ERFORMED BY: PHOEBE [facility] Kntshw8044 [address]Dublin [place] [id number] TSH ([id number])Ordered By: Syste m Self Pay Specialist on 03-17-2016 TSH Qn 1.740 {uIU/mL} Normal 0.450-4.500 [facility]; [facility] Work Phone: Comment on above: PATIENT NOT FASTINGP ERFORMED BY: PHOEBE [facility] Hxbccb8728 [facility] [id number] Information: [id number], [id number]; will review on 03/28 appt Vital Signs Date Time Vital Sign Value Performing Clinician Facility 07-17-2021 12:03-0500 Body height 158.75 cm Kaylee Dupree LPN [facility]; [facility] Work Phone: 07-17-2021 12:03-0500 Body mass index (BMI) [Ratio] 37.12 kg/m2 Kaylee Dupree LPN [facility]; [facility] Work Phone: 07-17-2021 12:03-0500 Body surface area Derived from formula 1.95 m2 Kaylee Dupree LPN [facility]; [facility] Work Phone: 07-17-2021 12:03-0500 Body temperature 97.8 [degF] Kaylee Dupree LPN [facility]; [facility] Work Phone: Comment on above: Method: Temporal 07-17-2021 12:03-0500 Body weight 93.56 kg Kaylee Dupree LPN [facility]; [facility] Work Phone: 07-17-2021 12:03-0500 Diastolic blood pressure 82 mm[Hg] Kaylee Dupree LPN [facility]; [facility] Work Phone: Comment on above: Patient Position: Sitting; Cuff Location : Left Arm; Cuff Size: Standard 07-17-2021 12:03-0500 Heart rate 67 /min Kaylee Dupree LPN [facility]; [facility] Work Phone: Comment on above: Pattern: Regular 07-17-2021 12:03-0500 Respiratory rate 16 /min Kaylee Dupree LPN [facility]; [facility] Work Phone: Comment on above: Pattern: Unlabored 07-17-2021 12:03-0500 SaO2% (BldA) [Mass fraction] 97 % Kaylee Dupree [facility] [address] [facility]; [facility] Work Phone: Comment on above: Room air 07-17-2021 12:03-0500 Systolic blood pressure 118 mm[Hg] Kaylee Dupree LPN [facility]; [facility] Work Phone: Comment on above: Patient Position: Sitting; Cuff Location : Left Arm; Cuff Size: Standard 05-15-2021 09:29-0400 Body height 158.75 cm Aria Duque [facility]; [facility] Work Phone: 05-15-2021 09:29-0400 Body mass index (BMI) [Ratio] 37.12 kg/m2 [facility]; [facility] Work Phone: 05-15-2021 09:29-0400 Body surface area Derived from formula 1.95 m2 [facility]; [facility] Work Phone: 05-15-2021 09:29-0400 Body temperature 97.1 [degF] [facility]; [facility] Work Phone: Comment on above: Method: Thermal Scan 05-15-2021 09:29-0400 Body weight 93.56 kg Ariashirley Duque [facility]; [facility] Work Phone: 05-15-2021 09:29-0400 Diastolic blood pressure 70 mm[Hg] [facility]; [facility] Work Phone: Comment on above: Patient Position: Sitting; Cuff Location : Left Arm; Cuff Size: Standard 05-15-2021 09:29-0400 Heart rate 102 /min [facility]; [facility] Work Phone: Comment on above: Pattern: Regular 05-15-2021 09:29-0400 Respiratory rate 16 /min [facility]; [facility] Work Phone: Comment on above: Pattern: Unlabored 05-15-2021 09:29-0400 SaO2% (BldA) [Mass fraction] 98 % Aria Yarbroughranjan [facility]; [facility] Work Phone: Comment on above: Room air 05-15-2021 09:29-0400 Systolic blood pressure 110 mm[Hg] Aria Garciapeterson [facility]; [facility] Work Phone: Comment on above: Patient Position: Sitting; Cuff Location : Left Arm; Cuff Size: Standard 03-17-2018 11:39-0400 Body height 158.75 cm Jessica Moreno RN [facility]; [facility] Work Phone: 03-17-2018 11:39-0400 Body mass index (BMI) [Ratio] 37.12 kg/m2 Jessica Moreno RN [facility]; [facility] Work Phone: 03-17-2018 11:39-0400 Body surface area Derived from formula 1.95 m2 Jessica Moreno RN [facility]; [facility] Work Phone: 03-17-2018 11:39-0400 Body weight 93.56 kg Jessica Moreno RN [facility]; [facility] Work Phone: 03-17-2018 11:39-0400 Diastolic blood pressure 78 mm[Hg] Jessica Moreno RN [facility]; [facility] Work Phone: Comment on above: Patient Position: Sitting; Cuff Location : Left Arm; Cuff Size: Large 03-17-2018 11:39-0400 Heart rate 57 /min Jessica Moreno RN [facility]; [facility] Work Phone: Comment on above: Pattern: Regular 03-17-2018 11:39-0400 Respiratory rate 18 /min Jessica Moreno RN Comprehens e Internal Medicine; [facility] Work Phone: Comment on above: Pattern: Unlabored 03-17-2018 11:39-0400 SaO2% (BldA) [Mass fraction] 97 % Jessica Moreno RN [facility]; [facility] Work Phone: Comment on above: Room air 03-17-2018 11:39-0400 Systolic blood pressure 128 mm[Hg] Jessica Moreno RN [facility]; [facility] Work Phone: Comment on above: Patient Position: Sitting; Cuff Location : Left Arm; Cuff Size: Large 02-17-2018 14:30-0400 Body height 158.75 cm Jessica Moreno RN [facility]; [facility] Work Phone: 02-17-2018 14:30-0400 Body mass index (BMI) [Ratio] 37.44 kg/m2 Jessica Moreno RN [facility]; [facility] Work Phone: 02-17-2018 14:30-0400 Body surface area Derived from formula 1.96 m2 Jessica Moreno RN [facility]; [facility] Work Phone: 02-17-2018 14:30-0400 Body weight 94.35 kg Jessica Moreno RN [facility]; [facility] Work Phone: 02-17-2018 14:30-0400 Diastolic blood pressure 62 mm[Hg] Jessica Moreno RN [facility]; [facility] Work Phone: Comment on above: Patient Position: Sitting; Cuff Location : Left Arm; Cuff Size: Large 02-17-2018 14:30-0400 Heart rate 64 /min Jessica Moreno RN [facility]; [facility] Work Phone: Comment on above: Pattern: Regular 02-17-2018 14:30-0400 Respiratory rate 18 /min Jessica Moreno RN Comprehensiv e [facility]; [facility] Work Phone: Comment on above: Pattern: Unlabored 02-17-2018 14:30-0400 SaO2% (BldA) [Mass fraction] 96 % Jessica Moreno RN [facility]; [facility] Work Phone: Comment on above: Room air 02-17-2018 14:30-0400 Systolic blood pressure 118 mm[Hg] Jessica Moreno RN [facility]; [facility] Work Phone: Comment on above: Patient Position: Sitting; Cuff Location : Left Arm; Cuff Size: Large 08-21-2017 09:59-0500 Body height 158.75 cm Jessica Moreno RN [facility]; [facility] Work Phone: 08-21-2017 09:59-0500 Body mass index (BMI) [Ratio] 40.18 kg/m2 Jessica Moreno RN [facility]; [facility] Work Phone: 08-21-2017 09:59-0500 Body surface area Derived from formula 2.01 m2 Jessica Moreno RN [facility]; [facility] Work Phone: 08-21-2017 09:59-0500 Body weight 101.27 kg Jessica Moreno RN [facility]; [facility] Work Phone: 08-21-2017 09:59-0500 Diastolic blood pressure 78 mm[Hg] Jessica Moreno RN [facility]; [facility] Work Phone: Comment on above: Patient Position: Sitting; Cuff Location : Left Arm; Cuff Size: Large 08-21-2017 09:59-0500 Heart rate 63 /min Jessica Moreno RN [facility]; [facility] Work Phone: Comment on above: Pattern: Regular 08-21-2017 09:59-0500 Respiratory rate 18 /min Jessica Moreno RN Comprehens e [facility]; [facility] Work Phone: Comment on above: Pattern: Unlabored 08-21-2017 09:59-0500 SaO2% (BldA) [Mass fraction] 96 % Jessica Moreno RN [facility]; [facility] Work Phone: Comment on above: Room air 08-21-2017 09:59-0500 Systolic blood pressure 120 mm[Hg] Jessica Moreno RN [facility]; [facility] Work Phone: Comment on above: Patient Position: Sitting; Cuff Location : Left Arm; Cuff Size: Large 05-01-2017 14:36-0400 Body height 158.75 cm Jessica Moreno RN [facility]; [facility] Work Phone: 05-01-2017 14:36-0400 Body mass index (BMI) [Ratio] 40 kg/m2 Jessica Moreno RN [facility]; [facility] Work Phone: 05-01-2017 14:36-0400 Body surface area Derived from formula 2.01 m2 Jessica Moreno RN [facility]; [facility] Work Phone: 05-01-2017 14:36-0400 Body weight 100.81 kg Jessica Moreno RN [facility]; [facility] Work Phone: 05-01-2017 14:36-0400 Diastolic blood pressure 82 mm[Hg] Jessica Moreno RN [facility]; [facility] Work Phone: Comment on above: Patient Position: Sitting; Cuff Location : Left Arm; Cuff Size: Large 05-01-2017 14:36-0400 Heart rate 63 /min Jessica Moreno RN [facility]; [facility] Work Phone: Comment on above: Pattern: Regular 05-01-2017 14:36-0400 Respiratory rate 18 /min Jessica Moreno RN [facility]; [facility] Work Phone: Comment on above: Pattern: Unlabored 05-01-2017 14:36-0400 SaO2% (BldA) [Mass fraction] 98 % Jessica Moreno RN [facility]; [facility] Work Phone: Comment on above: Room air 05-01-2017 14:36-0400 Systolic blood pressure 120 mm[Hg] Jessica Moreno RN [facility]; [facility] Work Phone: Comment on above: Patient Position: Sitting; Cuff Location : Left Arm; Cuff Size: Large 09-11-2016 08:07-0500 Body height 158.75 cm Jessica Moreno RN [facility]; [facility] Work Phone: 09-11-2016 08:07-0500 Body mass index (BMI) [Ratio] 42.52 kg/m2 Jessica Moreno RN [facility]; [facility] Work Phone: 09-11-2016 08:07-0500 Body surface area Derived from formula 2.06 m2 Jessica Moreno RN [facility]; [facility] Work Phone: 09-11-2016 08:07-0500 Body weight 107.16 kg Jessica Moreno RN [facility]; [facility] Work Phone: 09-11-2016 08:07-0500 Diastolic blood pressure 76 mm[Hg] Jessica Moreno RN [facility]; [facility] Work Phone: Comment on above: Patient Position: Sitting; Cuff Location : Left Arm; Cuff Size: Standard 09-11-2016 08:07-0500 Heart rate 57 /min Jessica Moreno RN [facility]; [facility] Work Phone: Comment on above: Pattern: Regular 09-11-2016 08:07-0500 Respiratory rate 18 /min Jessica Moreno RN [facility]; [facility] Work Phone: Comment on above: Pattern: Unlabored 09-11-2016 08:07-0500 SaO2% (BldA) [Mass fraction] 96 % Jessica Moreno RN [facility]; [facility] Work Phone: Comment on above: Room air 09-11-2016 08:07-0500 Systolic blood pressure 122 mm[Hg] Jessica Moreno RN [facility]; [facility] Work Phone: Comment on above: Patient Position: Sitting; Cuff Location : Left Arm; Cuff Size: Standard 08-07-2016 09:14-0500 Body height 158.75 cm Jessica Moreno RN [facility]; [facility] Work Phone: 08-07-2016 09:14-0500 Body mass index (BMI) [Ratio] 42.52 kg/m2 Jessica Moreno RN [facility]; [facility] Work Phone: 08-07-2016 09:14-0500 Body surface area Derived from formula 2.06 m2 Jessica Moreno RN [facility]; [facility] Work Phone: 08-07-2016 09:14-0500 Body weight 107.16 kg Jessica Moreno RN [facility]; [facility] Work Phone: 08-07-2016 09:14-0500 Diastolic blood pressure 80 mm[Hg] Jessica Moreno RN [facility]; [facility] Work Phone: Comment on above: Patient Position: Sitting; Cuff Location : Left Arm; Cuff Size: Large 08-07-2016 09:14-0500 Heart rate 65 /min Jessica Moreno RN [facility]; [facility] Work Phone: Comment on above: Pattern: Regular 08-07-2016 09:14-0500 Respiratory rate 18 /min Jessica Moreno RN [facility]; [facility] Work Phone: Comment on above: Pattern: Unlabored 08-07-2016 09:14-0500 SaO2% (BldA) [Mass fraction] 96 % Jessica Moreno RN [facility]; [facility] Work Phone: Comment on above: Room air 08-07-2016 09:14-0500 Systolic blood pressure 122 mm[Hg] Jessica Moreno RN [facility]; [facility] Work Phone: Comment on above: Patient Position: Sitting; Cuff Location : Left Arm; Cuff Size: Large 06-05-2016 12:17-0400 Body height 158.75 cm Jessica Moreno RN [facility]; [facility] Work Phone: 06-05-2016 12:17-0400 Body mass index (BMI) [Ratio] 41.8 kg/m2 Jessica Moreno RN [facility]; [facility] Work Phone: 06-05-2016 12:17-0400 Body surface area Derived from formula 2.05 m2 Jessica Moreno RN [facility]; [facility] Work Phone: 06-05-2016 12:17-0400 Body weight 105.35 kg Jessica Moreno RN [facility]; [facility] Work Phone: 06-05-2016 12:17-0400 Diastolic blood pressure 80 mm[Hg] Jessica Moreno RN [facility]; [facility] Work Phone: Comment on above: Patient Position: Sitting; Cuff Location : Left Arm; Cuff Size: Large 06-05-2016 12:17-0400 Heart rate 52 /min Jessica Moreno RN [facility]; [facility] Work Phone: Comment on above: Pattern: Regular 06-05-2016 12:17-0400 Respiratory rate 18 /min Jessica Moreno RN [facility]; [facility] Work Phone: Comment on above: Pattern: Unlabored 06-05-2016 12:17-0400 SaO2% (BldA) [Mass fraction] 98 % Jessica Moreno RN [facility]; [facility] Work Phone: Comment on above: Room air 06-05-2016 12:17-0400 Systolic blood pressure 124 mm[Hg] Jessica Moreno RN [facility]; [facility] Work Phone: Comment on above: Patient Position: Sitting; Cuff Location : Left Arm; Cuff Size: Large 04-10-2016 11:04-0400 [facility]; [facility] Work Phone: 04-10-2016 11:04-0400 Body mass index (BMI) [Ratio] 39.44 kg/m2 [facility]; [facility] Work Phone: 04-10-2016 11:04-0400 Body surface area Derived from formula 2 m2 [facility]; [facility] Work Phone: 04-10-2016 11:04-0400 Body temperature 98 [degF] [facility]; [facility] Work Phone: 04-10-2016 11:04-0400 Body weight 99.4 kg [facility]; [facility] Work Phone: 04-10-2016 11:04-0400 Diastolic blood pressure 62 mm[Hg] [facility]; [facility] Work Phone: Comment on above: Patient Position: Sitting; Cuff Location : Left Arm; Cuff Size: Standard 04-10-2016 11:04-0400 Heart rate 52 /min [facility]; [facility] Work Phone: Comment on above: Pattern: Regular 04-10-2016 11:04-0400 Respiratory rate 15 /min [facility]; [facility] Work Phone: Comment on above: Pattern: Unlabored 04-10-2016 11:04-0400 SaO2% (BldA) [Mass fraction] 98 % [facility]; [facility] Work Phone: Comment on above: Room air 04-10-2016 11:04-0400 Systolic blood pressure 120 mm[Hg] Rodrigo Thompson [facility]; [facility] Work Phone: Comment on above: Patient Position: Sitting; Cuff Location : Left Arm; Cuff Size: Standard 03-17-2016 11:45-0400 Body height 158.75 cm Jessica Moreno RN [facility]; [facility] Work Phone: 03-17-2016 11:45-0400 Body mass index (BMI) [Ratio] 39.44 kg/m2 Jessica Moreno RN [facility]; [facility] Work Phone: 03-17-2016 11:45-0400 Body surface area Derived from formula 2 m2 Jessica Moreno RN [facility]; [facility] Work Phone: 03-17-2016 11:45-0400 Body weight 99.4 kg Jessica Moreno RN [facility]; [facility] Work Phone: 03-17-2016 11:45-0400 Diastolic blood pressure 64 mm[Hg] Jessica Moreno RN [facility]; [facility] Work Phone: Comment on above: Patient Position: Sitting; Cuff Location : Left Arm; Cuff Size: Standard 03-17-2016 11:45-0400 Heart rate 57 /min Jessica Moreno RN [facility]; [facility] Work Phone: Comment on above: Pattern: Regular 03-17-2016 11:45-0400 Respiratory rate 18 /min Jessica Moreno RN [facility]; [facility] Work Phone: Comment on above: Pattern: Unlabored 03-17-2016 11:45-0400 SaO2% (BldA) [Mass fraction] 97 % Jessica Moreno RN [facility]; [facility] Work Phone: Comment on above: Room air 03-17-2016 11:45-0400 Systolic blood pressure 118 mm[Hg] Jessica Moreno RN [facility]; [facility] Work Phone: Comment on above: Patient Position: Sitting; Cuff Location : Left Arm; Cuff Size: Standard Encounters Encounter Date Encounter Type Care Provider Facility Start: 06-19-[address] [facility] Facilit y:[facility] Start: 01-25-2025 Encounter for genera l adult medical examination without abnormal findings Ino Tobias [facility] Start: 11-28-2024 End: 11-28-[address] [facility] Facility:[facility] Start: 11-28-2024 End: 11-28-[address] [facility] Facility:[facility] Start: 11-03-2024 End: 11-03-[address] [facility] Facility:[facility] Start: 10-31-2024 End: 10-31-[address] Hansa Lynch DO Work Phone: [facility] Work Phone: Start: 10-31-2024 End: 10-31-[address] Ino Tobias MD -Outpatient Breast Imaging Work Phone: Start: 10-31-2024 End: 10-31-2024 ambulatory Ino Tobias Facility:[facility] Start: 10-24-2024 End: 10-24-[address] Hansa Lynch DO Work Phone: [facility] Work Phone: Start: 10-24-2024 End: 10-24-[address] Ino Tobias MD -Outpatient Breast Imaging Work Phone: Start: 10-24-2024 End: 10-24-2024 ambulatory Ino Tobias Facility:[facility] Start: 09-14-2024 End: 09-14-[address] [facility] Start: 09-14-2024 End: 09-14-2024 ambulatory Ino Tobias Facility:[facility] Start: 07-17-2021 End: 07-17-2021 Office outpatient visit 15 minutes Hansa Lynch DO Work Phone: [facility] Start: 05-15-2021 End: 05-15-2021 Office outpatient visit 25 minutes Hansa Lynch DO Work Phone: [facility] Start: 03-18-2018 End: 03-18-2018 Phone Encounter Hansa Cris DO Work Phone: [facility] Start: 03-17-2018 End: 03-17-2018 Office outpatient visit 15 minutes Hansa Cris DO Work Phone: [facility] Start: 02-17-2018 End: 02-17-2018 Office outpatient visit 25 minutes Hansa Cris DO Work Phone: [facility] Start: 08-27-2017 End: 08-27-2017 Annotation/Addendum Hansa Cris DO Work Phone: [facility] Start: 08-24-2017 End: 08-24-2017 Annotation/Addendum Hansa Cris DO Work Phone: [facility] Start: 08-21-2017 End: 08-21-2017 Office outpatient visit 25 minutes Hansa Cris DO Work Phone: [facility] Start: 05-18-2017 End: 05-18-2017 Phone Encounter Hansa Cris DO Work Phone: [facility] Start: 05-01-2017 End: 05-01-2017 Office outpatient visit 15 minutes Hansa Cris DO Work Phone: [facility] Start: 09-11-2016 End: 09-11-2016 Office outpatient visit 25 minutes Hansa Cris DO Work Phone: [facility] Start: 08-07-2016 End: 08-07-2016 Office outpatient visit 40 minutes Hansa Cris DO Work Phone: [facility] Start: 06-05-2016 End: 06-05-2016 Office outpatient visit 10 minutes Hansa Cris DO Work Phone: [facility] Start: 04-10-2016 End: 04-10-2016 Office outpatient visit 15 minutes Hansa Cris DO Work Phone: [facility] Start: 03-17-2016 End: 03-17-2016 Periodic preventive med est patient 40-64yrs Hansa Cris DO Work Phone: [facility] Patient encounter procedure Kaylee Dupree SIGRID [facility]; [facility] Work Phone: Procedures Date Procedure Procedure Detail Performing Clinician Start: 10-31-[address] Malgorzata Lynch DO Work Phone: Start: 10-31-[address] Hansa Lynch DO Work Phone: Start: 10-24-2024 Screening mammography Nan Lynch DO Work Phone: Start: 07-11-2021 End: 07-11-2021 Brain without Contrast Comments: See Note; NOTES: [facility] Imaging Services [address] [place] [address] Brain without Contrast MR#: [id number] Acct: [id number] Name: GOKUL SERRANO Rep #: [id number] : 1970 F 50 From: Renay Castro MD PCP: Dr. Hansa Lynch DO Status: REG CLI Study: Brain without Contrast Date of Exam: 07/11/21 Exam# [id number] Ordering Dr: Hansa Lynch DO STUDY: MRI BRAIN WITHOUT CONTRAST REASON FOR EXAM: Female, 50 years old. ABNORMAL GAIT, episodes of headaches w/ nausea, vision change TECHNIQUE: Standardized multiplanar fat and water weighted pulse sequences were obtained. COMPARISON: None. FINDINGS: Normal size of the ventricles and extra-axial spaces for the patient''s age. Normal white matter tracts of the supratentorial brain. Normal bilateral basal ganglia. Normal thalami. There is no extra-axial fluid accumulation. Normal sella turcica, pituitary gland, infundibular stalk, optic chiasm and hypothalamus. Normal tectal plate and pineal gland. Normal midbrain, viki and medulla. Normal cerebellum. Normal basal cisterns. MRI/Brain without Contrast IMPRESSION: Unremarkable unenhanced MRI of the brain. Electronically Signed: Renay Castro MD at 13:32 EST Tel , Service support , CC: Dr. Hansa Lynch DO Tunnel Drier Operator: Signed Hansa Lynch DO Work Phone: Start: 03-18-2018 End: 03-18-2018 Abdomen WITH IV Contrast Comments: See Note; NOTES: [facility] Imaging Services [address] [place] [address] Abdomen WITH IV Contrast MR#: [id number] Acct: [id number] Name: GOKUL SERRANO Rep #: [id number] : 1970 F 47 From: Carlos A Yip MD PCP: Hansa Lynch DO Status: REG CLI Study: Abdomen WITH IV Contrast Date of Exam: 03/18/18 Exam# [id number] Ordering Dr: Hansa Lynch DO STUDY: CT ABDOMEN WITH CONTRAST REASON FOR EXAM: Female, 47 years old. Abdominal pain. Possible pancreatitis. RADIATION DOSAGE (If Supplied By Facility): CTDIvol = ( 18.45 ) mGy, DLP = ( 905.51 ) mGycm TECHNIQUE: Transaxial images were obtained post I.V. administration of 100 ml of Isovue 300 contrast, and with oral contrast. Sagittal and coronal images were reconstructed. Individualized dose optimization techniques were used for this CT. COMPARISON: Comparison is made with prior study dated August 13, 2017. FINDINGS: The visualized lung bases are unremarkable. The visualized portions of the heart are within normal limits. There is hepatomegaly with diffuse hepatic enlargement. The patient is status post cholecystectomy. Normal spleen. Normal pancreas. Normal bilateral adrenal glands. Normal right kidney. Normal left kidney. There is a small hiatal hernia. Normal small intestine. There is evidence of diffuse circumferential wall thickening of the descending colon as well as the transverse colon. This is suggestive of colitis. The appendix is visualized and appears normal. Normal abdominal aorta. Normal inferior vena cava. Normal retroperitoneum. Normal abdominal wall. Normal osseous structures. CT/Abdomen WITH IV Contrast IMPRESSION: Thickening of the ascending colon and transverse colon with prominence of the haustral markings. This is suggestive of colitis. Fatty infiltration of the liver. Electronically Signed: Carlos A Yip MD at 12:27 EDT Tel [phone], Service support , CC: Hanas Lynch DO Tunnel Drier Operator: Signed Hansa Lynch DO Work Phone: Start: 03-17-2018 End: 03-17-2018 Abdomen Limited Comments: See Note; NOTES: [facility] Imaging Services [address] [place] [address] Abdomen Limited MR#: [id number] Acct: [id number] Name: GOKUL SERRANO Rep #: [id number] : 1970 F 47 From: James Hays MD PCP: Hansa Lynch DO Status: REG CLI Study: Abdomen Limited Date of Exam: 03/17/18 Exam# [id number] Ordering Dr: Hansa Lynch DO STUDY: ABDOMINAL ULTRASOUND - RIGHT UPPER QUADRANT REASON FOR VISIT: Female, 47 years old. ] Right upper quadrant pain TECHNIQUE: Ultrasound evaluation of the right upper quadrant was performed with real-time and static james-scale imaging. TECHNICAL QUALITY: Adequate. COMPARISON: None. FINDINGS: Liver: The liver measures 16.4 cm. There is increased echogenicity of the liver. The bile ducts are within normal limits. There is hepatic color flow. The direction of portal flow is hepatopetal. There is no demonstrated mass lesion. Gallbladder: Not visualized due to cholecystectomy. Common Bile Duct (C.B.D.): The common bile duct measures 3.4 mm. Pancreas: Slightly heterogeneous echogenicity which may be consistent with acute pancreatitis. No focal mass.. Right Kidney: Normal size of the right kidney. The right kidney measures 11.6 x 5.4 x 3.9 cm. Normal renal cortex. The right cortex measures 1.3 cm. There is no demonstrated renal mass or cyst. There is no right hydronephrosis. US/Abdomen Limited IMPRESSION: Mild enlarged fatty infiltrated liver Postop changes status post cholecystectomy Findings suggestive of mild pancreatitis although this may be better assessed with CAT scan if indicated Electronically Signed: James Hays MD at 18:33 EDT , Service support , CC: Hansa Lynch DO Tunnel Drier Operator: Signed Hansa yLnch DO Work Phone: Start: 09-16-2017 End: 09-16-2017 Surgery Visit Report Comments: See Note; NOTES: [facility] [address] [place] [address] OFFICE VISIT Date of Service: 09/15/17 MR#: [id number] Acct: [id number] Name: GOKUL SERRANO Rep #: [id number] : 1970 Provider: Salma Dudley PA-C Age/Sex: 46/F Location: [facility] Status: Signed Intake Vital Signs09/15/17 Body Mass Index (BMI) 39.2 09/15/17 Blood Pressure 120/64 Intake Visit Reasons: Joseph Maoe 2/2 Kiln Burner Required: No Is patient in pain?: Yes (lower abdomen) Pain scale (1-10): 3 Allergies No Known Allergies Allergy (Verified 09/15/17 13:17) [facility] Medical History Anxiety (Acute) Pancreatitis (Acute) Nausea AND vomiting (Acute) Abdominal pain (Acute) Surgical History S/P cholecystectomy (Acute) Status post breast reduction (Acute) S/P partial hysterectomy (Acute) Family History Mother Breast cancer Diabetes Sister Breast cancer Diabetes Father Seizures Social History Smoking Status: Current every day smoker second hand exposure: Yes alcohol intake: current alcohol intake frequency: a few times a month substance use type: does not use caffeine: Yes what type of physical activity do you participate in: none frequency: does not exercise seatbelt use: always HPI HPI HPI: GOKUL SERRANO, is a 46 F I am following for recurrent bout of pancreatitis and right upper quadrant pain. Dr. Molina performed a laparoscopic cholecystectomy with intraoperative cholangiography on 09/04/2017. Patient tolerated the procedure well. Pathology demonstrated chronic cholecystitis without calculus. Patient notes incisional discomfort at the umbilicus. She denies nausea, vomiting, fever. Exam Const General: cooperative, healthy appearing, comfortable, no acute distress GI Inspection: normal to inspection, incision (c/d/i. No erythema or infection noted) Palpation: soft Auscultation: normal bowel sounds Assessment AND Plan Problems 1. Chronic calculous cholecystitis K80.10 2. S/P cholecystectomy Z90.49 09/04/2017 Plan - No restrictions noted - Follow-up as needed - May return to work on Thursday 09/21 Coding Level of Care Code Global Post Op Diagnoses Chronic calculous cholecystitis K80.10 S/P cholecystectomy Z90.49 09/16/17 1113 <Electronically signed by Salma Dudley PA-C> Date Salma Dudley PA-C Cosigner Signature: Date (if applicable) CC: Hansa Lynch DO Hansa Lynch DO Work Phone: Start: 09-09-2017 End: 09-09-2017 12 lead ECG Comments: See Note; NOTES: [facility] Cardiovascular Services [address] [place] [address] 12 Lead EKG 09/04/17 0912 MR#: [id number] Acct: [id number] Name: GOKUL SERRANO Rep #: [id number] : 1970 46 From: Ino Oliva MD Attending Dr: Derek Molina MD Status: DEP [facility] Ordering Dr: Derek Molina MD Date: 09/04/17 Location: [facility] Sex: F C Admitted: Test Reason : PRE OP Blood Pressure : / mmHG Vent. Rate : 057 BPM Atrial Rate : 057 BPM P-R Int : 128 ms QRS Dur : 086 ms QT Int : 414 ms P-R-T Axes : 013 026 031 degrees QTc Int : 402 ms Sinus bradycardia Low voltage QRS (limb leads) Confirmed by PJ MONTOYA, INO ([id number]), proposal editor ALO RIOJAS ([id number]) on 09/09/2017 2:53:09 PM Referred By: Derek Molina Confirmed By:INO OLIVA MD 09/09/17 1453 Date Ino Oliva MD CC: Hansa Lynch DO; Derek Molina MD Signed Laya Tello MD Work Phone: Start: 09-04-2017 End: 09-04-2017 Discharge Instruction Comments: See Note; NOTES: [facility] Medical Records Department [address] [place] [address] Instructions for Home/Discharge Instructions 09/04/17 1047 MR#: [id number] Acct: [id number] Name: GOKUL SERRANO Rep #: [id number] : 1970 46 From: Derek Molina MD PCP: Hansa Lynch DO Status: DEP [facility] Discharge Diet: Light diet - advance as tolerated - if you have questions about your diet instructions, please talk to you doctor. Discharge Activity: May Not Drive - for 1 week or while taking narcotic pain medicine. May shower in (days): 1 Lifting Restrictions: 10 pounds Call your doctor if your incision/area has: Continuous Slow Oozing, Sudden Increased Bleeding, Increased Pain/ Swelling, Increased Redness, Foul Smelling Discharge Call your doctor if you observe: Fever of 101 or Higher Suture Line Care: Avoid Pulling/Pushing, Avoid Pinching/Bending Additional Dressing/Incision Instructions:: Change or remove dressing in 4 days. Leave steri-strips in place for 1 week. Allergies/Adverse Reactions: Allergies No Known Allergies Allergy (Verified 09/03/17 13:52) Medications to take at Discharge Hydrocodone Bitart/Apap 5-325 [[place] 5/325] 1 - 2 tab PO Q4H PRN PRN #20 tab 08/13/17 Hydrocodone Bitart/Apap 5-325 [[place] 5MG-325MG] 1 tablet PO Q6H PRN PRN 3 Days #6 tablet 09/04/17 The following prescriptions were given: Hydrocodone Bitart/Apap 5-325 [[place] 5MG-325MG] 1 tablet PO Q6H PRN PRN 3 Days #6 tablet PRN Reason: Pain Primary Care Physician: Hansa Lynch DO [Primary Care Provider] - Please Follow Up With: Derek Molina MD - [phone] When: Call to make an appointment to be seen in about 10 days. 09/04/17 1708 <Electronically signed by Derek Molina MD> Date Derek Molina MD CC: Hansa Garcia DO Work Phone: Start: 09-04-2017 End: 09-04-2017 Operative Report Comments: See Note; NOTES: [facility] Medical Records Department [address] [place] [address] Operative Report 09/04/17 1223 MR#: [id number] Acct: [id number] Name: GOKUL SERRANO Rep #: [id number] : 1970 46 From: Derek Molina MD PCP: Hansa Lynch DO Status: REG SDC Y Location: [place] [address] Problem List (1) Chronic calculous cholecystitis Status: Acute Report of Operation Date of Procedure: 09/04/17 Pre-Operative Diagnosis: Chronic cholecystitis cholelithiasis, repetitive bouts of pancreatitis Post-Operative Diagnosis: Same Surgery/Procedure Performed:: Laparoscopic cholecystectomy with intraoperative cholangiography Description of Surgical Findings:: Timeout and informed consent was obtained. 46-year-old female was taken the operative placement table underwent general ventricular-based anesthesia. Ancef 2 g given intravenous relatively the abdomen was sterilely prepped draped 0.5% Marcaine was used as local anesthetic. Skin sites were pre-anesthetized. A total of 30 cc was used. A vertical infraumbilical incision was created. Holding sutures of 0 Vicryl placed. Varies needle inserted. Saline drop test performed. The abdomen was insufflated with CO2 to a pressure of 10 mmHg pressure. Yohana trocar inserted. 10 lap scope inserted. No evidence of any trocar injuries. The abdomen is rapidly inspected no evidence any superficial abnormalities. There were dense adhesions of omentum completely walling off the gallbladder. Five-minute trochars are placed in the epigastric mid abdomen and right upper quadrant. Tediously the omentum was bluntly sharply and electrocautery dissected free from the gallbladder. Then the infundibular area was tediously teased free. There was noted to be both an anterior to posterior cystic artery. The cystic duct was carefully completely dissected free. The hepatocystic angle was dissected free. 2 Hem-o-mingo clips were placed on the anterior cystic artery and one distally prior to transecting it. A Hem-o-mingo clip was placed on the cystic duct. Incision made into a 14-gauge Angiocath Greek Berto catheter was inserted. Fluoroscopically controlled plantar grams were obtained demonstrating normal ductal anatomy and what appeared to be free flow into the small bowel. The cholangiogram catheter was removed and 2 Hem-o-mingo clips were placed on the cystic duct stump prior to transecting it. The posterior cystic artery was secured with 2 Hem-o-mingo clips. The gallbladder was then carefully and tediously dissected free from the liver bed. Significant amount of chronic inflammatory change was encountered and electrocautery was used to carefully dissect the gallbladder free. There was no bile or gallbladder stone spillage. The gallbladder was placed in retrieval bag. The right upper quadrant was irrigated and aspirated free of excess fluid. To further assure hemostasis fibular was placed in the liver bed. The gallbladder was exited the umbilicus. The remaining trochars were removed under visualization. The abdomen was allowed to deflate of CO2. The fascia at the umbilicus approximated interrupted 0 Vicryl figure 8 suture. Bandages were approximated up to 4 Monocryl subdermal stitches. Steri-Strips, Telfa, OpSite dressings applied. Sponge and instrument and needle counts were reported to the surgeon be correct. Blood loss was minimal. She tired procedure was taken to recovery or insect condition without apparent complication. Specimens gallbladder. Drains none. Blood loss minimal. Derek Molina M.D., F.A.C.S. Type of Anesthesia:: General Anesthesiologist: Amandeep Juarez 09/04/17 1228 <Electronically signed by Derek Molina MD> Date Derek Molina MD CC: Hansa Lynch DO; Derek Molina MD Signed Hansa Lynch DO Work Phone: Start: 09-04-2017 End: 09-04-2017 Cholangiogram/ O R,Initial Comments: See Note; NOTES: [facility] Imaging Services [address] [place] [address] Cholangiogram/ O R,Initial MR#: [id number] Acct: [id number] Name: GOKUL SERRANO Rep #: [id number] : 1970 F 46 From: Carlos A Yip MD PCP: Hansa Lynch DO Status: [facility] Study: Cholangiogram/ O R,Initial Date of Exam: 09/04/17 Exam# [id number] Ordering Dr: Derek Molina MD STUDY: INTRAOPERATIVE CHOLANGIOGRAM. REASON FOR EXAM: Female, 46 years old. Laparoscopic cholecystectomy. FLUOROSCOPY TIME (if supplied): (24.5 seconds) minutes/seconds TECHNIQUE: An intraoperative glandular was performed by the surgeon. Image was submitted. COMPARISON: None. FINDINGS: The visualized intrahepatic biliary ducts are unremarkable. The common bile duct is unremarkable. No intraluminal filling defects is seen. There is free flow of contrast into the duodenum. RAD/Cholangiogram/ O R,Initial IMPRESSION: Unremarkable intraoperative cholangiogram. Electronically Signed: Carlos A Yip MD at 14:02 EST Tel [phone], Service support , CC: Hansa Lynch DO; Derek Molina MD Tunnel Drier Operator: Signed Laya Tello MD Work Phone: Start: 09-02-2017 End: 09-02-2017 Surgery Visit Report Comments: See Note; NOTES: [address] [place] [address] OFFICE VISIT Date of Service: 09/01/17 MR#: [id number] Acct: [id number] Name: GOKUL SERRANO Rep #: [id number] : 1970 Provider: Salma Dudley PA-C Age/Sex: 46/F Location: [facility] Status: Signed Intake Vital Signs09/01/17 Height 5 ft 3 in 09/01/17 Weight: 215 lb Intake Visit Reasons: Abdominal pain/Gall Stones Kiln Burner Required: No Is patient in pain?: Yes (Epigastric to back) Pain scale (1-10): 4 Allergies No Known Allergies Allergy (Verified 09/01/17 13:45) Medications Hydrocodone Bitart/Apap 5-325 [[place] 5/325] 1 - 2 tab PO Q4H PRN PRN #20 tab 08/13/17 [Rx Confirmed 09/01/17] Ondansetron [Zofran Odt] 4 mg PO Q8H PRN PRN #10 tab 08/13/17 [Rx Confirmed 09/01/17] PFSH Medical History Anxiety (Acute) Pancreatitis (Acute) Nausea AND vomiting (Acute) Abdominal pain (Acute) Surgical History Status post breast reduction (Acute) S/P partial hysterectomy (Acute) Family History Mother Breast cancer Diabetes Sister Breast cancer Diabetes Father Seizures Social History Smoking Status: Current every day smoker second hand exposure: Yes alcohol intake: current alcohol intake frequency: a few times a month substance use type: does not use caffeine: Yes what type of physical activity do you participate in: none frequency: does not exercise seatbelt use: always HPI HPI HPI: GOKUL SERRANO, is a 46 F who presents with multiple bouts of gallstone pancreatitis. Patient states her first episode of pancreatitis was 7 years ago. She was hospitalized at [facility] for 4 days. She notes for the last several years she has been just dealing with the pain. Three weeks ago however her symptoms intensified. She noted epigastric pain which went straight into her back with associated, nausea, vomiting. She presented to the [place] ED where at CT scan of the abdomen/pelvis was completed and demonstrated early appendicitis and normal gallbladder. Patient declined admission and was recommended to follow-up with her PCP, Dr. Lynch. Lab worked noted to have a WBC 15.5, hgb 14.3, Hct 42.2 and plt 339. Total bilirubin was 0.50, ALT 54, AST 32, and lipase 285. Patient followed up with her PCP and obtained a RUQ u/s on 08/26/17 demonstrating fatty liver and multiple tiny gallstones within the gallbladder lumen. Patient notes her most recent gallbladder attack was this past Thursday. She notes RUQ abdominal pain which radiated into her back with nausea approximately 1 hour after eating. Patient states previously she had eliminated fried foods and fatty foods, which helped slightly. Patient is a 1/2 ppd smoker x 20 years. She notes occasional marijuana use. Her last use was 3 months ago. She notes previous partial hysterectomy otherwise no abdominal surgeries. Patient denies taking routine medications. She denies previous myocardial infarction, stroke, previous blood clots. She denies previous complications with anesthesia. Exam Const General: cooperative, healthy appearing, comfortable, no acute distress HENMT Head: normal to inspection Eyes General: appearance normal, both eyes and all related structures Neck Neck mass: No Resp Effort AND Inspection: normal respiratory effort Auscultation: clear to auscultation bilaterally Cardio Rate: regular rate Rhythm: regular rhythm GI Inspection: normal to inspection, obesity Palpation: soft, tender (RUQ/epigastric region) Auscultation: normal bowel sounds Skin General: no rashes or lesions noted Neuro Cranial Nerves: CN's II-XI intact bilaterally Extrem General: normal to inspection Psych Appearance: grossly normal Affect: normal affect Assessment AND Plan Problems 1. Acute biliary pancreatitis, unspecified complication status K85.10 2. Calculus of gallbladder without cholecystitis without obstruction K80.[address] Molina also evaluated this patient. Dr. Molina will plan to perform a laparoscopic cholecystectomy with intraoperative cholangiogram. Procedure details, risks and benefits have been explained to the patient. Patient has had the opportunity to ask and have questions answered. Patient verbally understands and agrees with the plan. Patient desires to proceed with the proposed procedure. Coding Level of Care Code Off vis,new,level 4 Diagnoses Acute biliary pancreatitis, unspecified complication status K85.10 Chronicity: acute Pancreatitis type: biliary Acute pancreatitis complication: unspecified Calculus of gallbladder without cholecystitis without obstruction K80.20 Cholelithiasis location: gallbladder Cholecystitis presence: without cholecystitis Biliary obstruction: without biliary obstruction 09/02/17 1426 <Electronically signed by Salma Dudley PA-C> Date Salma Dudley PA-C Cosigner Signature: Date (if applicable) CC: Hansa Garcia DO Work Phone: Start: 08-26-2017 End: 08-26-2017 Abdomen Limited Comments: See Note; NOTES: [facility] Imaging Services [address] [place] [address] Abdomen Limited MR#: [id number] Acct: [id number] Name: GOKUL SERRANO Rep #: [id number] : 1970 F 46 From: Carlos A Yip MD PCP: Hansa Lynch DO Status: REG CLI Study: Abdomen Limited Date of Exam: 08/26/17 Exam# [id number] Ordering Dr: Hansa Lynch DO STUDY: ABDOMINAL ULTRASOUND - RIGHT UPPER QUADRANT REASON FOR VISIT: Female, 46 years old. History of pancreatitis. TECHNIQUE: Ultrasound evaluation of the right upper quadrant was performed with real-time and static james-scale imaging. TECHNICAL QUALITY: Adequate. COMPARISON: None. FINDINGS: Liver: The liver measures 17.1 cm. There is increased echogenicity consistent with fatty infiltration. The bile ducts are within normal limits. There is hepatic color flow. The direction of portal flow is hepatopetal. There is no demonstrated mass lesion. Gallbladder: Normal distended gallbladder. The gallbladder wall measures 2.2 mm. There is a negative sonographic Trejo's sign. There is no pericholecystic fluid. There are multiple echogenic structures within the gallbladder, consistent with multiple gallstones. Common Bile Duct (C.B.D.): The common bile duct measures 2.1 mm. Pancreas: Normal size of the head, body of the pancreas. The tail portion is obscured due to overlying bowel gas. There is normal echogenicity of the pancreas. There is no demonstrated pancreatic mass or cyst. Right Kidney: Normal size of the right kidney. The right kidney measures 12.1 cm x 5.4 cm x 5.0 cm. Normal renal cortex. The right cortex measures 2.3 cm. There is no demonstrated renal mass or cyst. There is no right hydronephrosis. US/Abdomen Limited IMPRESSION: Fatty infiltration of the liver. Multiple tiny gallstones within the gallbladder lumen. Electronically Signed: Carlos A Yip MD at 9:49 EST Tel [phone], Service support , CC: Hansa Lynch DO Tunnel Drier Operator: Signed Hansa Lynch DO Work Phone: Start: 08-17-2017 End: 08-17-2017 Emergency Department Summary Comments: See Note; NOTES: [facility] Medical Records Department [address] [place] [address] Emergency Department Summary 08/13/17 0224 MR#: [id number] Acct: [id number] Name: GOKUL SERRANO Rep #: [id number] : 1970 46 From: Chico Jay MD PCP: Hansa Lynch DO Status: DEP ER - ER Visit Summary Date of Service: 08/13/17 Addendum: This patient was checked out and by Dr. Kelly with CT and pelvis. IV contrast pending. This is returned and shows an mild inflammatory changes and stranding in the region of the uncinate process and head of the pancreas consistent with early pancreatitis. Normal appendix. Normal gallbladder and extrahepatic biliary system. Emergency department course: The patient is resting comfortably. She was given another dose of morphine and Zofran IV. I had a prolonged discussion with her about her labs and CT findings. She would like to go home. She reports that she drinks wine on the weekends. Her last alcohol intake was 4 days ago. I suspect that her pancreatitis is biliary in nature. Treatment plan: The patient will be discharged with [place] and Zofran. She is instructed to use a clear liquid diet. Instructed to follow-up with Dr. Dumas as soon as possible for further evaluation. Return to the emergency department for worsening pain, fever, or any other concerns. Disposition: To home in improved and stable condition. Impression: 1. Abdominal pain. 2. Early pancreatitis. This note was generated with Pulselocker dictation software. It may contain incorrect words, spelling, and punctuation that were not noted in review of the chart prior to signing ED Disposition - Plan for ED Patient: Chief Complaint: Abd Pain Instructions: ED Pancreatitis Prescriptions: Hydrocodone Bitart/Apap 5-325 [[place] 5/325] 1 - 2 tablet PO Q4H PRN PRN #20 tablet PRN Reason: Pain Ondansetron [Zofran Odt] 4 mg PO Q8H PRN PRN #10 tablet PRN Reason: Nausea Referrals: Ricky Dumas MD [STAFF PHYSICIAN] - As soon as possible What to do if you have Problems For any increased pain, shortness of breath, bleeding, nausea or vomiting, chest pain, or any unexpected problems, contact your Primary Care Provider. Call [employer] [facility] ([phone]) or report to the closest Emergency Room. Call 911 if necessary. 08/13/17 0336 <Electronically signed by Chico Jay MD> Date Chico Jay MD Cosigner Signature (If Indicated): Date CC: Hansa Cris DO Hansa Lynch DO Work Phone: Start: 08-14-2017 End: 08-14-2017 12 lead ECG Comments: See Note; NOTES: [facility] Cardiovascular Services [address] [place] [address] 12 Lead EKG 08/12/176 MR#: [id number] Acct: [id number] Name: GOKUL SERRANO Rep #: [id number] : 1970 46 From: Tayo Mehta MD Attending Dr: Status: DEP ER Ordering Dr: Raúl Myers DO Date: 08/12/17 Location: ED Sex: F C Admitted: Test Reason : ABD PAIN Blood Pressure : / mmHG Vent. Rate : 074 BPM Atrial Rate : 074 BPM P-R Int : 108 ms QRS Dur : 084 ms QT Int : 376 ms P-R-T Axes : 025 030 038 degrees QTc Int : 417 ms Sinus rhythm with short W[place] Otherwise normal ECG Confirmed by TAYO MEHTA MD ([id number]), proposal editor ALO RIOJAS ([id number]) on 08/14/2017 1:21:08 PM Referred By: Confirmed By:TAYO MEHTA MD 08/14/17 1321 Date Tayo Mehta MD CC: Hansa Cris DO Signed Hansa Lynch DO Work Phone: Start: 08-13-2017 End: 08-13-2017 Emergency Department Summary Comments: See Note; NOTES: [facility] Medical Records Department [address] [place] [address] Emergency Department Summary 08/13/17 0224 MR#: [id number] Acct: [id number] Name: GOKUL SERRANO Rep #: [id number] : 1970 46 From: Chico Jay MD PCP: Hansa Lynch DO Status: DEP ER - ER Visit Summary Date of Service: 08/13/17 Addendum: This patient was checked out and by Dr. Kelly with CT and pelvis. IV contrast pending. This is returned and shows an mild inflammatory changes and stranding in the region of the uncinate process and head of the pancreas consistent with early pancreatitis. Normal appendix. Normal gallbladder and extrahepatic biliary system. Emergency department course: The patient is resting comfortably. She was given another dose of morphine and Zofran IV. I had a prolonged discussion with her about her labs and CT findings. She would like to go home. She reports that she drinks wine on the weekends. Her last alcohol intake was 4 days ago. I suspect that her pancreatitis is biliary in nature. Treatment plan: The patient will be discharged with [place] and Zofran. She is instructed to use a clear liquid diet. Instructed to follow-up with Dr. Dumas as soon as possible for further evaluation. Return to the emergency department for worsening pain, fever, or any other concerns. Disposition: To home in improved and stable condition. Impression: 1. Abdominal pain. 2. Early pancreatitis. This note was generated with Pulselocker dictation software. It may contain incorrect words, spelling, and punctuation that were not noted in review of the chart prior to signing ED Disposition - Plan for ED Patient: Chief Complaint: Abd Pain Instructions: ED Pancreatitis Prescriptions: Hydrocodone Bitart/Apap 5-325 [[place] 5/325] 1 - 2 tablet PO Q4H PRN PRN #20 tablet PRN Reason: Pain Ondansetron [Zofran Odt] 4 mg PO Q8H PRN PRN #10 tablet PRN Reason: Nausea Referrals: Ricky Dumas MD [STAFF PHYSICIAN] - As soon as possible What to do if you have Problems For any increased pain, shortness of breath, bleeding, nausea or vomiting, chest pain, or any unexpected problems, contact your Primary Care Provider. Call [facility] ([phone]) or report to the closest Emergency Room. Call 911 if necessary. 08/13/17 0336 <Electronically signed by Chico Jay MD> Date Chico Jay MD Cosigner Signature (If Indicated): Date CC: Hansa Garcia DO Work Phone: Start: 08-12-2017 End: 08-12-2017 Emergency Department Summary Comments: See Note; NOTES: [facility] Medical Records Department [address] [place] [address] Emergency Department Summary 08/12/17 2346 MR#: [id number] Acct: [id number] Name: GOKUL SERRANO Rep #: [id number] : 1970 46 From: Raúl Myers DO PCP: Hansa Lynch DO Status: REG ER - ER Visit Summary Date of Service: 08/12/17 Chief Complaint: [Abdominal pain] History of Present Illness: The patient is a 46 F [resents to the emergency department chief complaint of 2 day history of abdominal pain. Patient has had continuous pain in the upper abdomen which is cause nausea and vomiting. Patient states food seems to make the pain worse especially fatty foods. Patient states that she has had similar pains in the past when she had pancreatitis. Patient does describe the pain radiating through to her back. Patient denies any fever. She denies urinary symptoms.] Physical Examination: [HEENT-PERRLA, EOMI. Cranial nerves II through XII grossly intact. TMs clear. Mucous membranes moist. No adenopathy. Cardiovascular-regular rate and rhythm without murmur or ectopy Lungs-clear to auscultation, chest wall stable without crepitus or subcu emphysema Abdomen-normoactive bowel sounds, soft. Patient has tenderness in the epigastric region. She has a negative Trejo sign. There is no rebound, rigidity, or peritoneal signs. Extremities-intact 4, normal range of motion, normal pulses, atraumatic] Test Results: [CBC with differential obtained showed a white blood cell count of 15.5, hemoglobin 14, hematocrit 42, platelets 339. Chemistries unremarkable. LFTs were normal. Lipase was 285. Troponin was less than 0.015. Lactate was normal at 0.8. EKG obtained showed a sinus rhythm with a ventricular rate [address] scan of the abdomen and pelvis with IV and p.o. contrast results pending.] Emergency Department Course and Treatment: [Patient was medicated with morphine and Zofran.] Treatment Plan: [Pending CT results]. Care of patient turned over to evening physician awaiting results and final disposition and include patient Disposition: [Pending] Impression: [Abdominal pain] This note was generated with Pulselocker dictation software. It may contain incorrect words, spelling, and punctuation that were not noted in review of the chart prior to signing ED Disposition - Plan for ED Patient: Chief Complaint: Abd Pain Referrals: Hansa Lynch, [Primary Care Provider] - What to do if you have Problems For any increased pain, shortness of breath, bleeding, nausea or vomiting, chest pain, or any unexpected problems, contact your Primary Care Provider. Call [facility] ([phone]) or report to the closest Emergency Room. Call 911 if necessary. 08/12/17 5398 <Electronically signed by Raúl Myers DO> Date Raúl Myers DO Cosigner Signature (If Indicated): Date CC: Hansa Garcia DO Work Phone: Start: 08-12-2017 End: 08-13-2017 Abdomen/Pelvis WITH Contrast Comments: See Note; NOTES: [facility] Imaging Services [address] [place] [address] Abdomen/Pelvis WITH Contrast MR#: [id number] Acct: [id number] Name: GOKUL SERRANO Rep #: [id number] : 1970 F 46 From: John Tang MD PCP: Hansa Lynch DO Status: REG ER Study: Abdomen/Pelvis WITH Contrast Date of Exam: 08/13/17 Exam# [id number] Ordering Dr: Raúl Myers DO STUDY: CT ABDOMEN AND PELVIS WITH CONTRAST REASON FOR EXAM: Female, 46 years old. Epigastric pain radiating to the back. Elevated WBC. History of hysterectomy. RADIATION DOSAGE (If Supplied By Facility): CTDIvol = ( 18.67 ) mGy, DLP = ( 1247.36 ) mGycm TECHNIQUE: Transaxial images were obtained from the dome of the diaphragm to the symphysis pubis without oral contrast. 100ML ml of Isovue 300 contrast was administered. Sagittal and coronal images were reconstructed. Individualized dose optimization techniques were used for this CT. COMPARISON: None. FINDINGS: The visualized portions of lung bases demonstrate hypoventilatory/atelectat ic changes. The visualized portions of the heart are within normal limits. There is diffuse fatty infiltration of the liver. No focal lesion is seen. The liver is borderline in size. Normal gallbladder and extrahepatic biliary system. Normal spleen. There is subtle stranding and inflammatory process near the uncinate process and head of the pancreas which may reflect early pancreatitis. Normal bilateral adrenal glands. Normal right kidney. Normal left kidney. Normal visualized stomach. Normal small intestine. The descending colon is not well-distended. The appendix is visualized and appears normal. There is mild atherosclerotic calcification of the abdominal aorta, without a demonstrated aneurysm. Normal inferior vena cava. Normal retroperitoneum. Normal urinary bladder. Normal abdominal wall. There is no demonstrated destructive bony process. CT/Abdomen/Pelvis WITH Contrast IMPRESSION: Fatty infiltration of the liver. Mild inflammatory changes and stranding in the region of the uncinate process and the head of the pancreas consistent with early pancreatitis. No pseudocyst formation is seen. Electronically Signed: John Tang MD at 1:56 EST Tel , Service support , CC: Hansa Lynch DO; Raúl Myers DO Tunnel Drier Operator: Signed Hansa Lynch DO Work Phone: Start: 05-19-2017 End: 05-22-2017 Breast w/o and/or W Cont Bilat Comments: See Note; NOTES: [facility] Imaging Services [address] [place] [address] Breast w/o and/or W Cont Bilat MR#: [id number] Acct: [id number] Name: GOKUL SERRANO Rep #: [id number] : 1970 F 46 From: Alexis Hidalgo MD PCP: Hansa Lynch DO Status: REG CLI Study: Breast w/o and/or W Cont Bilat Date of Exam: 05/19/17 Exam# [id number] Ordering Dr: Hansa Lynch DO STUDY: BILATERAL BREAST MR WITHOUT AND WITH CONTRAST REASON FOR EXAM: Female, 46 years old. Further evaluation of ultrasonographic abnormality. Lateral breast pain beginning one month ago. Patient was given 2 different antibiotics. The second round of antibiotics improved the symptoms and findings. History of breast cancer in mother, sister and grandmother. TECHNIQUE: Multi-sequence multi-echo imaging of both breasts was performed with a dedicated breast coil. T1-weighted and T2-weighted images were performed before the administration of contrast. T1-weighted images were also performed after the administration of 10 mL of Gadavist contrast intravenously without complications. COMPARISON: Bilateral mammogram dated May 13, 2017 and right breast ultrasound dated May 14, 2017. FINDINGS: RIGHT BREAST: The breast tissue is fatty with mild background enhancement. There is a superficial minimally enhancing area in the right breast corresponding with the ultrasonographic abnormality. There is air within this area of enhancement. These findings are compatible with superficial infection and are best seen on the axial series 08/07/2001 images 155-196). No other significant abnormalities are identified. LEFT BREAST: The breast tissue is fatty with mild background enhancement. There are no abnormal enhancing masses or areas of non-mass enhancement in the left breast. There are small normal-appearing lymph nodes in both axillae. There is no abnormality in the visualized regions of the chest or liver. MRI/Breast w/o and/or W Cont Bilat IMPRESSION: Superficial area of enhancement with air within it compatible with superficial infection. No other significant abnormality. CATEGORY: BIRADS Category 2: Benign. A letter regarding these results will be sent to the patient by the facility within 30 days. Electronically Signed: Alexis Hidalgo MD at 11:15 EDT , Service support , CC: Hansa Lynch DO Tunnel Drier Operator: Signed Hansa Lynch DO Work Phone: Start: 05-14-2017 End: 05-15-2017 Breast Limited Unilateral Comments: See Note; NOTES: [facility] Imaging Services [address] [place] [address] Breast Limited Unilateral MR#: [id number] Acct: [id number] Name: GOKUL SERRANO Rep #: [id number] : 1970 F 46 From: Carlos A Yip MD PCP: Hansa Lynch DO Status: REG CLI Study: Breast Limited Unilateral Date of Exam: 05/14/17 Exam# [id number] Ordering Dr: Hansa Lynch DO STUDY: ULTRASOUND BREAST - RIGHT REASON FOR EXAM: Female, 46 years old. Abnormal screening mammogram. Swelling and redness in the right breast. TECHNIQUE: Axial and longitudinal images of the RIGHT breast were performed with a high resolution ultrasound transducer. COMPARISON: Comparison is made with prior mammogram dated May 13, 2017. FINDINGS: RIGHT Breast: There is evidence of a 2.6 cm x 1.7 cm x 0.6 cm hypoechoic ill-defined density with a peripheral vascularity in the subcutaneous fat at the 7:00 position of the breast at 8 cm from the nipple. This corresponds the palpable abnormality. Questionable 3.7 cm x 3.5 cm 1.5 cm ill-defined hypoechoic mass in the retroareolar region of the breast. There is also evidence of a 1.4 cm x 0.5 cm x 0.8 cm irregular triangulated hypoechoic nodule at the 9:00 position breast at 3 cm from the nipple. US/Breast Limited Unilateral IMPRESSION: Multiple findings as described. Correlation with MRI of the right breast is recommended for further evaluation. ASSESSMENT CATEGORY: BIRADS Category 0: Incomplete. Need additional imaging evaluation. A letter regarding these results will be sent to the patient by the facility within 30 days. Electronically Signed: Carlos A Yip MD at 13:03 EDT Tel [phone], Service support , CC: Hansa Lynch DO Tunnel Drier Operator: Signed Hansa Lynch DO Work Phone: Start: 05-13-2017 End: 05-14-2017 SCREENING MAMM (CAD), BILAT Comments: See Note; NOTES: [facility] Imaging Services [address] [place] [address] SCREENING MAMM (CAD), BILAT MR#: [id number] Acct: [id number] Name: GOKUL SERRANO Rep #: [id number] : 1970 F 46 From: Carlos A Yip MD PCP: Hansa Lynch DO Status: REG CLI Study: SCREENING MAMM (CAD), BILAT Date of Exam: 05/13/17 Exam# [id number] Ordering Dr: Hansa Lynch DO MAMMOGRAPHY - BILATERAL SCREENING REASON FOR EXAM: Female, 46 years old. Routine annual screening examination. PERTINENT HISTORY: Sister with breast cancer. Mother with breast cancer. Grandmother with breast cancer. Aunt with breast cancer. The patient presents with a history of a swelling and redness in the outer quadrant of the left breast. Prior bilateral breast reduction. TECHNIQUE: Digital bilateral breast taylor (3D mammographic acquisition) in the CC and MLO projections. 2-D mediolateral oblique (MLO) and craniocaudad (CC) views of both breasts were obtained. CAD: Full Field Digital Mammography with Computer Added Detection was performed. COMPARISON: Comparison is made with prior study dated April 23, 2016. FINDINGS: Breast Composition: The breasts are heterogeneously dense, which may obscure small masses. Is evidence of a periareolar thickening of the right breast with increased density in the subareolar region of the right breast. This has progressed as compared to prior study. Correlation with ultrasound is recommended. No other significant abnormalities are identified. HPBI/SCREENING MAMM (CAD), BILAT IMPRESSION: Thickening of the right periareolar region with evidence of increased density in the retroareolar region of the right breast. Correlation with ultrasound is recommended. ASSESSMENT CATEGORY: BIRADS Category 0: Incomplete. Need additional imaging evaluation. A letter regarding these results will be sent to the patient by the facility within 30 days. Approximately 10% of breast cancers are not detected by mammography. A normal mammogram should not delay biopsy of a clinically suspicious abnormality. [id number] Electronically Signed: Carlos A Yip MD at 8:18 EDT Tel [phone], Service support , CC: Hansa Lynch DO Tunnel Drier Operator: Signed Hansa Lynch DO Work Phone: Start: 09-04-2016 End: 09-04-2016 Carotid Duplex Ultrasound Comments: See Note; NOTES: [facility] Cardiovascular Services [address] [place] [address] Carotid Duplex Ultrasound 09/03/16 1333 MR#: [id number] Acct: [id number] Name: GOKUL SERRANO Rep #: [id number] : 1970 45 From: Oswaldo Red MD Attending Dr: Hansa Lynch DO Status: REG CLI Ordering Dr: Hansa Lynch DO Date: 09/03/16 Location: [facility] Sex: F C Admitted: Reason For Study: SYNCOPE Rt. Velocities/BP Lt. Velocities/BP Prox CCA 99.7/27.0 cm/sec. Prox CCA 99.1/22.9 cm/sec. Mid CCA 71.5/22.3 cm/sec. Mid CCA 91.5/23.5 cm/sec. Dist CCA 75.0/19.9 cm/sec. Dist CCA 85.6/26.4 cm/sec. Prox ICA 62.7/23.5 cm/sec. Prox ICA 62.4/23.6 cm/sec. Mid ICA 81.5/33.4 cm/sec. Mid ICA 82.1/31.5 cm/sec. Dist ICA 85.0/36.4 cm/sec. Dist ICA 77.1/36.5 cm/sec. Rt. ICA/CCA = 1.2. Lt. ICA/CCA = .84. Prox ECA 106.0/19.3 cm/sec. Prox ECA 78.6/17.0 cm/sec. Rt. Vert. 44.0/19.3 cm/sec. Lt. Vert. 36.1/11.0 cm/sec. Right Extracranial There is no significant atherosclerotic plaque noted in the right common carotid artery. There is heterogeneous, irregular atherosclerotic plaque noted in the right internal carotid artery. There is no significant atherosclerotic plaque noted in the right external carotid artery. Antegrade flow is noted in the right vertebral artery. Left Extracranial There is intimal thickening but no significant atherosclerotic plaque noted in the left common carotid artery. There is intimal thickening but no significant atherosclerotic plaque noted in the left internal carotid artery. There is no significant atherosclerotic plaque noted in the left external carotid artery. Antegrade flow is noted in the left vertebral artery. Procedure Carotid Duplex 38742. Exam performed in department. Interpretation Summary Mild (<50%) stenosis right extracranial internal carotid. Mild (<50%) stenosis left extracranial internal carotid. Flow within the vertebral arteries is antegrade bilaterally. Ordering Physician: Hansa Lynch Performed By: Dian Gerard RVT 09/04/162015 Date Oswaldo Red MD CC: Hansa Lynch DO Date Dictated: 09/03/16 1333 Date Transcribed: 09/04/162015 Tunnel Drier Operator: Signed Hansa Lynch DO Work Phone: Start: 09-03-2016 End: 09-03-2016 Echocardiogram Complete Comments: See Note; NOTES: [facility] Cardiovascular Services [address] [place] [address] Echo Complete 09/03/16 1309 MR#: [id number] Acct: [id number] Name: GOKUL SERRANO Rep #: [id number] : 1970 45 From: Steve Longo MD Attending Dr: Hansa Lynch DO Status: REG CLI Ordering Dr: Hansa Lynch DO Date: 09/03/16 Location: [facility] Sex: F C Admitted: Reason For Study: Syncope Procedure This was a 2D Doppler, Color Flow transthoracic echocardiogram. Exam performed in department. Left Ventricle Normal size and thickness. The estimated ejection fraction is 65 %. Stage 1 diastolic dysfunction. No regional wall motion abnormalities noted. Right Ventricle Normal size and thickness. Normal systolic function. Atria Normal left atrium. Normal right atrium. Normal atrial septum. Mitral Valve The mitral valve is structurally normal. No prolapse or stenosis seen. Tricuspid Valve Normal tricuspid valve. Unable to estimate RV systolic pressure/pulmonary artery pressure due to technically difficult study. Aortic Valve Normal aortic valve. Trisinus/trileaflet aortic valve. Pulmonic Valve Normal pulmonic valve. Great Vessels Normal aortic root. Normal arch. Normal inferior vena cava. Inferior vena cava collapse with sniff. Pericardium/Pleural No pericardial effusion. MMode/2D Measurements & Calculations LVIDd: 4.6 cm IVSd: 1.0 cm Ao root diam: 2.6 cm LVIDs: 2.8 cm LVPWd: 1.0 cm LA dimension: 4.4 cm RVDd: 3.0 cm FS: 39.5 % LAV(MOD-bp): 53.3 ml LA A4 area: 17.0 cm2 RA A4 area: 14.1 cm2 LAV(MOD-bp) Indexed: 26.2 ml/m2 LAV(MOD-sp2): 58.3 ml LAV(MOD-sp4): 42.0 ml Doppler Measurements & Calculations MV E max francisco: 61.6 cm/sec Lat Peak E' Francisco: 12.5 cm/sec Med Peak E' Francisco: 8.3 cm/sec MV A max francisco: 70.1 cm/sec E/E' lat: 4.9 E/E' med: 7.5 MV E/A: 0.88 Ao V2 max: 164.6 cm/sec LV V1 max: 128.6 cm/sec PA V2 max: 105.9 cm/sec Ao max P.8 mmHg LV V1 max P.6 mmHg Interpretation Summary The estimated ejection fraction is 65 %. Stage 1 diastolic dysfunction. Unable to estimate RV systolic pressure/pulmonary artery pressure due to technically difficult study. There is no comparison study available. Ordering Physician: Hansa Lynch Performed By: Divina Hudson RDCS 09/03/16 1553 Date Steve Longo MD CC: Hansa Lynch DO Date Dictated: 09/03/16 1309 Date Transcribed: 09/03/16 1553 Tunnel Drier Operator: Signed Hansa Lynch DO Work Phone: Start: 09-03-2016 End: 09-03-2016 Brain/Head without Contrast Comments: See Note; NOTES: [facility] Imaging Services [address] [place] [address] [place] [address] Verdana 4d Brain/Head without Contrast MR#: [id number] Acct: [id number] Name: GOKUL SERRANO Rep #: [id number] : 1970 F 45 From: Carlos A Yip MD PCP: Hansa Lynch DO Status: REG CLI Study: Brain/Head without Contrast Date of Exam: 09/03/16 Exam# [id number] Ordering Dr: Hansa Lynch DO STUDY: CT BRAIN WITHOUT CONTRAST REASON FOR EXAM: Female, 45 years old. Multiple syncopal episodes. RADIATION DOSAGE (If Supplied By Facility): CTDIvol = ( 44.99 ) mGy, DLP = ( 762.36 ) mGycm TECHNIQUE: Transaxial CT imaging of the brain was performed without administration of intravenous contrast material. Individualized dose optimization techniques were used for this CT. COMPARISON: None. FINDINGS: Normal soft tissue structures. Normal calvarium. Normal size ventricles and extra-axial spaces for the patient's age. Normal white matter tracts of the cerebral hemispheres. Normal basal ganglia and thalami. Normal brainstem. Normal cerebellum. There is no intracranial hemorrhage. There are no findings of an acute ischemic infarction. Mild mucosal thickening along the inferior aspect of the left maxillary sinus. CT/Brain/Head without Contrast IMPRESSION: Normal unenhanced CT scan of the brain. Mild mucosal thickening along the inferior aspect of the left maxillary sinus. Electronically Signed: Carlos A Yip MD at 14:27 EST Tel [phone], Service support [phone], CC: Hansa Lynch DO Tunnel Drier Operator: Signed Hansa Lynch DO Work Phone: Start: 09-03-2016 End: 09-03-2016 Chest PA and Lateral Comments: See Note; NOTES: [facility] Imaging Services [address] [place] [address] Verdana 4d Chest PA and Lateral MR#: [id number] Acct: [id number] Name: GOKUL SERRANO Rep #: [id number] : 1970 F 45 From: Carlos A Yip MD PCP: Hansa Lynch DO Status: REG CLI Study: Chest PA and Lateral Date of Exam: 09/03/16 Exam# [id number] Ordering Dr: Hansa Lynch DO STUDY: X-RAY CHEST REASON FOR EXAM: Female, 45 years old. Cough. Syncopal episodes. TECHNIQUE: PA and lateral views of the chest. COMPARISON: None. FINDINGS: The lungs are clear and expanded. There is no demonstrated pleural abnormality. Normal size heart. Normal mediastinum and earnestine. Normal visualized pulmonary arteries. Normal visualized aortic arch and descending thoracic aorta. Normal visualized thoracic spine. Normal visualized ribs, clavicles, and shoulders. There is no demonstrated abnormality of the visualized soft tissue structures of the upper abdomen. RAD/Chest PA and Lateral IMPRESSION: Normal x-ray examination of the chest. Electronically Signed: Carlos A Yip MD at 14:28 EST Tel [phone], Service support [phone], CC: Hansa Lynch DO Tunnel Drier Operator: Signed Hansa Lynch DO Work Phone: Start: 04-23-2016 End: 05-01-2016 Bilat Scrn Digital AND CAD Comments: See Note; NOTES: [facility] Imaging Services [address] [place] [address] Verdana 4d Bilat Scrn Digital AND CAD MR#: [id number] Acct: [id number] Name: GOKUL SERRANO Rep #: [id number] : 1970 F 45 From: Carlos A Yip MD PCP: Hansa Lynch DO Status: REG CLI Study: Bilat Scrn Digital AND CAD Date of Exam: 04/23/16 Exam# [id number] Ordering Dr: Cris, Hansa DO MAMMOGRAPHY - BILATERAL SCREENING REASON FOR EXAM: Female, 45 years old. Routine annual screening examination. PERTINENT HISTORY: Sister with breast cancer. Mother with breast cancer. Exam otherwise breast cancer. History of prior bilateral breast reduction. TECHNIQUE: Digital bilateral breast taylor (3D mammographic acquisition) in the CC and MLO projections. 2-D mediolateral oblique (MLO) and craniocaudad (CC) views of both breasts were obtained. CAD: Full Field Digital Mammography with Computer Added Detection was performed. COMPARISON: Comparison is made with prior outside examination dated May 10, 2009. FINDINGS: Breast Composition: The breasts are heterogeneously dense, which may obscure small masses. There are no dominant masses or suspicious calcifications. No other significant abnormalities are identified. There has been no significant change since the prior study. [facility] AND CAD IMPRESSION: Stable bilateral screening mammogram. Yearly follow-up mammogram recommended. (A) ASSESSMENT CATEGORY: BIRADS Category 1: Negative. A letter regarding these results will be sent to the patient by the facility within 30 days. Approximately 10% of breast cancers are not detected by mammography. A normal mammogram should not delay biopsy of a clinically suspicious abnormality. [id number] Electronically Signed: Carlos A Yip MD at 13:31 EDT Tel [phone], Service support [phone], CC: Hansa Lynch DO Tunnel Drier Operator: Signed Hansa Lynch DO Work Phone: Cholecystectomy Kaylee Rocha robina MATTA Comment on above: 09/20 H/O: hysterectomy S/P partial hysterectom y Dr. Hansa Lynch DO Work Phone: Comment on above: 2005 History of cholecystectomy S/P cholecystectomy Dr. Hansa Lynch DO Work Phone: Comment on above: 09/04/2017 History of reduction of breast Status post breast reduction Dr. Hansa Lynch DO Work Phone: Comment on above: 1995 Partial hysterectomy Kaylee pringle [employer]NER Comment on above: age 34 Reduction mammoplast y, bilateral Kaylee Dupree LAMINATION SP[employer]NER Comment on above: age 26 Plan of Treatment Date Care Activity Detail Author Start: 07-17-2021 Procedure Education Eprescribed prescriptions (G8553) [facility] Work Phone: Start: 07-17-2021 Provider Instructions for Treatment Reviewed Diagnostic Tests [facility] Work Phone: Start: 05-15-2021 Procedure Education Eprescribed prescriptions (G8553) [facility]; [facility] Work Phone: Start: 02-17-2018 Comprehensive metabolic panel METABOLIC PANEL, COMPREHENSIVE (61427) [facility]; [facility] Work Phone: Start: 02-17-2018 Blood count complete auto&auto difrntl wbc CBC W/AUTO DIFF WBC (61455) [facility]; [facility] Work Phone: Start: 02-17-2018 Sedimentation rate rbc non-automated ESR-F (SED RATE ERYTHROCYTE - FEMALE) (56664) [facility]; [facility] Work Phone: Start: 02-17-2018 Assay of lipase LIPASE (03305) [facility] Work Phone: Start: 02-17-2018 Assay of amylase AMYLASE (29969) [facility] Work Phone: Start: 02-17-2018 Procedure Education Eprescribed prescriptions (G8553) [facility]; [facility] Work Phone: Start: 08-21-2017 Procedure Education Eprescribed prescriptions (G8553) [facility]; [facility] Work Phone: Start: 08-21-2017 Provider Instructions for Treatment [facility]; [facility] Work Phone: Start: 09-11-2016 Provider Instructions for Treatment Reviewed Diagnostic Tests [facility]; [facility] Work Phone: Start: 08-07-2016 Procedure Education Eprescribed prescriptions (G8553) [facility]; [facility] Work Phone: Start: 08-07-2016 Provider Instructions for Treatment [facility] Work Phone: Start: 06-05-2016 Provider Instructions for Treatment Low Back Pain Red Flags [facility]; [facility] Work Phone: Start: 04-10-2016 Procedure Education Eprescribed prescriptions (G8553) [facility]; [facility] Work Phone: Start: 04-10-2016 Provider Instructions for Treatment Continue Current Prescription(s) [facility]; [facility] Work Phone: Start: 03-17-2016 Provider Instructions for Treatment [facility] Work Phone: [facility] Work Phone: [facility] Work Phone: [facility] Work Phone: [facility] Work Phone: [facility] Work Phone: [facility] Work Phone: [facility] Work Phone: [facility] Work Phone: [facility] Work Phone: [facility] Work Phone: [facility] Work Phone: [facility] Work Phone: Payers Date Payer Category Payer Unknown [id number] 2024 Self-pay 2024 Unknown [id number] 2016 Self-pay [id number] [address] [place] BC/BS Unknown [id number] 2.16.8 [id number] Unknown [id number] 2.16.8 [id number] Unknown [id number] 2.16.8 [id number] Unknown [id number] 2.16.8 [id number] Unknown [id number] 2.16.8 [id number] Unknown [id number] 2.16.8 [id number] Unknown [id number] 2.16.8 [id number] Social History Date Type Detail Facility Alcohol Use: Alcohol Use: [facility] Work Phone: Caffeine Use Caffeine Use [facility] Work Phone: Comment on above: qd Exercise History: Exercise History: [facility] Work Phone: Living Situation: Living Situation: [facility] Work Phone: Pets/Animals: Pets/Animals: [facility]; [facility] Work Phone: Tobacco use: Tobacco use: [facility] Work Phone: Comment on above: 2ppd Start: 09-16-2017 Tobacco smoking status NHIS Smokes tobacco daily (finding) [facility] Start: 10-29-2024 End: 11-02-2024 Sex Female (finding) [facility] Start: 1970 Sex Assigned At Female W [facility] Medical Equipment Procedure Code Equipment Code Equipment Origin al Text Equipment Identifier Dates RUBENS NARAYAN FDA Start: 09-04-2017 RUBENS NARAYAN FDA Start: 09-04-2017 RUBENS NARAYAN FDA Start: 09-04-2017 RUBENS NARAYAN FDA Start: 09-04-2017 DRESSING,FIBRILL AR 1X2 1961 FDA Start: 09-04-2017 RUBENS NARAYAN FDA Start: 09-04-2017 CLIP,RUBENS STEVENSON FDA Start: 09-04-2017 CLIPRUBENS FDA Start: 09-04-2017 CLIPRUBENS FDA Start: 09-04-2017 DRESSING,FIBRILL AR 1X2 1961 FDA Start: 09-04-2017 Radiology Diagnostic study note 10-31-2024 Note Date & Type Note Facility 10-31-2024 Radiology Diagnostic study note [facility] Imaging Services [address] [place] [id number] Breast Limited Unilateral MR#: [id number] Acct: [id number] Name: GOKUL SERRANO Rep #: [id number] : 1970 F 53 From: Hema Julian DO PCP: Dr. Ino Tobias MD Status: REG C ALEX Study:Breast Limited Unilateral Date of Exam: 10/31/24 Exam# [id number] Ordering Dr: Ino Tobias MD PROCEDURE: BREAST LIMITED UNILATERAL 10/31/2024 REASON FOR EXAM: RIGHT BREAST DENSITIES Inconclusive mammogram. Evaluate masslike densities.. TECHNIQUE: Targeted left breast ultrasound. COMPARISON: Mammogram studies dated 10/31/2024, 10/24/2024, and 07/06/2023 FINDINGS: There is a hypoechoic, heterogeneous, irregularly marginated, masslike density seen in the lateral areolar region covering an area measuring approximate 4.1 x 3.7 x 1.3 cm. This appears to have some calcifications within it. Biopsy is warranted in order to completely exclude a malignancy. There is a benign-appearing cyst identified at the 5 o'clock, 2 cm from nipple position measuring 4 x 4 x 4 mm. US/Breast Limited Unilateral IMPRESSION: Impression: The mass in the lateral areolar region should be biopsied is noted completely exclude a malignancy. Birads: BI-RADS 4: SUSPICIOUS ABNORMALITY. Reading Location: [id number] CC: Dr. Ino Tobias MD ~ Tunnel Drier Operator: Signed [facility] Evaluation note Note Date & Type Note Facility Evaluation note No assessment information availa ble [facility] Work Phone: Instructions Note Date & Type Note Facility Instructions Name Patient Instructions Indication:BMI 37.0-37.9, adult Start: 1 Instruction Type:Provider Instructions for Treatment How to Access Health Information Online using Patient Portal and 3rd [employer] Apps Indication:BMI 37.0-37.9, adult Start: 1 Instruction Type:Patient Education Patient Instructions Indication:Smoker Start: 1 Instruction Type:Provider Instructions for Treatment How to Access Health Information Online using Patient Portal and [employer] Apps Indication:Smoker Start: 1 Instruction Type:Patient Education How to access health information online Indication:Non-smoker Start: 8 Instruction Type:Patient Education How to access health information online - Detail Indication:Non-smoker Start: 8 Instruction Type:Patient Education Patient Instructions Indication:Non-smoker Start: 8 Instruction Type:Provider Instructions for Treatment How to access health information online Indication:Dysuria Start: 8 Instruction Type:Patient Education How to access health information online - Detail Indication:Dysuria Start: 8 Instruction Type:Patient Education Patient Instructions Indication:Dysuria Start: 8 Instruction Type:Provider Instructions for Treatment How to access health information online Indication:Pancreatitis due to biliary obstruction Start: 8 Instruction Type:Patient Education How to access health information online - Detail Indication:Pancreatitis due to biliary obstruction Start: 8 Instruction Type:Patient Education Patient Instructions Indication:Pancreatitis due to biliary obstruction Start: 8 Instruction Type:Provider Instructions for Treatment How to access health information online Indication:Smoker Start: 7 Instruction Type:Patient Education How to access health information online - Detail Indication:Smoker Start: Instruction Type:Patient Education Patient Instructions Indication:Smoker Start: Instruction Type:Provider Instructions for Treatment How to access health information online Indication:Smoker Start:11-Sep-2016 Instruction Type:Patient Education How to access health information online - Detail Indication:Smoker Start:11-Sep-2016 Instruction Type:Patient Education Patient Instructions Indication:Smoker Start:11-Sep-2016 Instruction Type:Provider Instructions for Treatment How to access health information online Indication:BMI 40.0-44.9, adult Start:07-Aug-2016 Instruction Type:Patient Education How to access health information online - Detail Indication:BMI 40.0-44.9, adult Start:07-Aug-2016 Instruction Type:Patient Education Patient Instructions Indication:BMI 40.0-44.9, adult Start:07-Aug-2016 Instruction Type:Provider Instructions for Treatment How to access health information online Indication:Folliculitis Start:10-Apr-2016 Instruction Type:Patient Education How to access health information online - Detail Indication:Folliculitis Start:10-Apr-2016 Instruction Type:Patient Education Patient Instructions Indication:Folliculitis Start:10-Apr-2016 Instruction Type:Provider Instructions for Treatment How to access health information online Indication:Annual Medicare Physical WITH abnormal findings (Renamed from Encounter for general adult medical examination with abnormal findings) Start: Instruction Type:Patient Education How to access health information online - Detail Indication:Annual Medicare Physical WITH abnormal findings (Renamed from Encounter for general adult medical examination with abnormal findings) Start: Instruction Type:Patient Education Patient Instructions Indication:Annual Medicare Physical WITH abnormal findings (Renamed from Encounter for general adult medical examination with abnormal findings) Start: 6 Instruction Type:Provider Instructions for Treatment [facility] Work Phone: Reason for referral (narrative) Note Date & Type Note Facility Reason for referral (narrative) No reason for referral information available [facility] Work Phone: Family History No Family History Records FoundUnknown Family Member Name Dates Details Bone cancer Comments:Mother. Status:Active Breast Cancer Comments:Mother. Sister. Mat ernal Aunt. Maternal Grandmother. Status:Active Diabetes Mellitus Type II Comments:Sister. Mother. Status:Active Hypertension Comments:Paternal Grandfathe r. Status:Active Relationship Condition Age at Onset Recorded Date/T travis mother Malignant neoplasm of breast Unknown Diabetes mellitus Unknown sister Malignant neoplasm of breast Unknown father Seizure Unknown Chief Complaint and Reason for Visit Chief Complaint Admit Date SCREENING October 24, 2024 2:4 5pm Chief Complaint Admit Date SCREENING October 24, 2024 2:4 5pm ABN MAMM RT BREAST October 31, 2024 8:4 1am Summary Purpose Advance Directives No Advanced Directives Records Found Additional Source Comments Care Teams (unrecognized sec tion and content) Team Status: Active Member Role Status Dates Dr. Ino Tobias MD Primary Care Provider Active Team Status: Inactive Member Role Status Dates Dr. Hansa Lynch DO Primary Care Provider Active Start: September 14, 2024 End: September 14, 2024 Dr. Ino Tobias MD Attending Provider Active Start: September 14, 2024 End: September 14, 2024 Dr. Ino Tobias MD Referring Provider Active Start: September 14, 2024 End: September 14, 2024 Team Status: Inactive Member Role Status Dates Dr. Ino Tobias MD Primary Care Provider Active Start: October 24, 2024 End: October 24, 2024 Dr. Ino Tobias MD Attending Provider Active Start: October 24, 2024 End: October 24, 2024 Dr. Ino Tobias MD Referring Provider Active Start: October 24, 2024 End: October 24, 2024 Team Status: Inactive Member Role Status Dates Dr. Ino Tobias MD Primary Care Provider Active Start: October 31, 2024 End: October 31, 2024 Dr. Ino Tobias MD Attending Provider Active Start: October 31, 2024 End: October 31, 2024 Dr. Ino Tobias MD Referring Provider Active Start: October 31, 2024 End: October 31, 2024 Goals (unrecognized section and content) Goals may be documented in a n alternate sectionGoals may be documented in an alternate section INFORMATION SOURCE (unrecogn ized section and content) DATE CREATED AUTHOR 06/06/2025 [facility] FOR RECORDS PERTAINING TO PATIENTS WHO ARE OR HAVE BEEN ENROLLED IN A CHEMICAL DEPENDENCY/SUBSTANCEABUSE PROGRAM, SOME INFORMATION MAY BE OMITTED. This clinical summary was aggregated from multiple sources. Caution should be exercised in using it in the provision of clinical care. This summary normalizes information from multiple sources, and as a consequence, information in this document may materially change the coding, format and clinical context of patient data. In addition, data may be omitted in some cases. CLINICAL DECISIONS SHOULD BE BASED ON THE PRIMARY CLINICAL RECORDS. [employer] [facility]. provides no warranty or guarantee of the accuracy or completeness of information in this document.
[2025-07-07 13:27] LABS: Follicle Stimulating Hormone 23.4 mIU/mL
== END | disposition home or self-care (01) ==
LOC: CIMLAB 11:20
PROVIDERS: PCP Internal Medicine; Referring Provider Internal Medicine; Visit Provider Internal Medicine
DX: N95.1 Menopausal and female climacteric states (principal); R73.09 Other abnormal glucose
CPT/HCPCS: 36415; 83001; 83036